=== PATIENT | female | born 1980 | race Caucasian/White ===

== ENCOUNTER → 2016-12-20 | Outpatient (REF) | payer OTHER ==
[~2016-12-20] MED LIST: ASPI1TAB PO; GLIP10TA6 PO; INSULADS SC; LEVO100T5 PO; LISI-538 PO; METF1000 PO; NYST100024 TOP; VENTAER INH
== END ==
LOC: M SFHCWAGY 11:40
PROVIDERS: ATTEND Nurse Practitioner Family
DX: Z12.4 Encounter for screening for malignant neoplasm of cervix (principal)

== ENCOUNTER 2017-01-07 16:15 | Emergency (ER) | payer OTHER ==
[2017-01-07] MEDS ORDERED: HumuLIN R (REGULAR) INSULIN (NovoLIN R) **100U/ML** PER UNIT As Ordered ONE ×2 (16:54→18:02)
[2017-01-07 17:16] LABS: BASO % 0.6 % (0.0-1.0); EOS # 0.1 K/mm3 (0.0-0.50); EOS % 1.7 % (0.0-3.0); LARGE UNSTAINED CELL # 0.2 K/mm3 (0.0-0.4); LARGE UNSTAINED CELL % 2.1 % (0.0-4.0); LYMPH # 1.5 K/mm3 (1.5-4.5); LYMPH % 19.7 % (24.0-44.0); MEAN CORPUSCULAR HEMOGLOBIN 28.3 pg (27.0-33.0); MEAN CORPUSCULAR HGB CONC 32.4 g/dl (32.0-36.5); MEAN CORPUSCULAR VOLUME 87.4 fl (80.0-96.0); MONO # 0.3 K/mm3 (0.0-0.8); MONO % 3.8 % (0.0-5.0); NEUTROPHILS # 5.6 K/mm3 (1.8-7.7); NEUTROPHILS % 72.1 % (36.0-66.0); PLATELET COUNT, AUTOMATED 247 k/mm3 (150-450); RED CELL DISTRIBUTION WIDTH 13.7 % (11.5-14.5); WHITE BLOOD COUNT 7.7 K/mm3 (4.0-10.0)
[2017-01-07 17:17] LABS: VENOUS BASE EXCESS 4.7 (-2.0-2.0); VENOUS O2 SATURATION 44.7 % (60.0-80.0); VENOUS PARTIAL PRESSURE CO2 54.6 mmHg (38.0-50.0); VENOUS PARTIAL PRESSURE O2 25.7 mmHg (30.0-50.0); VENOUS STANDARD HCO3 27.2 MEQ/L; VENOUS TOTAL CO2 33.1 MEQ/L (24.0-28.0)
--- NOTE | 2017-01-07 17:32 | REP ---
Clinical: Cough . Comparison: 09/26/2016 . Technique: PA and lateral. Findings: The mediastinum and cardiac silhouette are normal. The lung [place] are clear and without acute consolidation, effusion, or pneumothorax. The skeletal structures are intact and normal. Impression: 1. No acute cardiopulmonary process. Signed by Murphy Mckeon MD 01/07/2017 05:23 P
[2017-01-07 17:33] LABS: BLOOD UREA NITROGEN 9 MG/DL (7-18); CREATININE FOR GFR 0.94 MG/DL (0.55-1.02); GLUCOSE, FASTING 355 MG/DL (70-105)
[2017-01-07 17:34] LABS: ANION GAP 9 MEQ/L (8-16); CALCIUM LEVEL 8.5 MG/DL (8.5-10.1); CARBON DIOXIDE LEVEL 32 MEQ/L (21-32); CHLORIDE LEVEL 94 MEQ/L (98-107); GLOMERULAR FILTRATION RATE > 60.0 (>60); POTASSIUM SERUM 3.8 MEQ/L (3.5-5.1); SODIUM LEVEL 135 MEQ/L (136-145)
--- NOTE | 2017-01-07 18:57 | EDDOCDS ---
Physician Documentation [facility] Name: Cherise Ghotra Age: 36 yrs Sex: Female : 1980 Arrival Date: 01/07/2017 Time: 16:15 Bed I4 / M4 Private MD: Ekaterina Arrieta NP Disposition: 01/07/17 18:49 Discharged to Home/Self Care. Impression: Acute upper respiratory infection, unspecified, Nausea and vomiting, Diarrhea, unspecified. - Condition is Stable. - Discharge Instructions: Diarrhea, Clear Liquid Diet, Nausea and Vomiting, Upper Respiratory Infection, Pediatric. - Prescriptions for Reglan 10 mg Oral Tablet - take 1 tablet by ORAL route every 6 hours take 30 minutes before meals and at bedtime; 20 tablet. Zithromax Z- You 250 mg Oral Tablet - take 1 tablet by ORAL route as directed for 5 days Day 1- take two tablets once. Day 2, 3, 4 , 5 take one tablet once daily.; 6 tablet. - Medication Reconciliation, Local Pharmacy Hours form. - Follow up: Ekaterina Arrieta; When: 2 - 3 days; Reason: Recheck today's complaints, Continuance of care. - Problem is new. - Symptoms have improved. - Notes: CONTINUE WITH ALBUTEROL AT HOME, INCREASE FLUIDS AND REST, FOLLOW UP WITH YOUR DOCTOR, RETURN TO THE ER IF THE SYMPTOMS WORSEN OR BECOME CONCERNING Historical: - Allergies: Ibuprofenmy doctor told me not to take; - Home Meds: 1. albuterol sulfate 90 mcg/actuation Inhl aepb 1 puff every 4-6 hours 2. aspirin 81 mg Oral tab 1 tab once daily 3. furosemide 40 mg Oral tab 1 tab once daily 4. glipizide 10 mg Oral tab 2 times per day 5. Toujeo SoloStar 300 unit/mL (1.5 mL) subcutaneous inpn 90 unit daily 6. levothyroxine 100 mcg Oral cap 1 cap once daily 7. loratadine 10 mg Oral tab 1 tab once daily 8. metformin 1,000 mg Oral tab 2 times per day - PMHx: Asthma; born with hole in heart; Diabetes - IDDM: controlled; Hypercholesterolemia; Hypertension; Hypothyroidism; - PSHx: Cesearean Section; Hernia repair; Cholecystectomy; right ankle surgery; Hernia Surgery X 9; - Social history: Smoking status: Patient states former smoker of tobacco. No barriers to communication noted, The patient speaks fluent Bahamian, Speaks appropriately for age. - Family history: Pertinent for similar symptoms recently. - : The pt / caregiver states he / she is not on anticoagulants. Home medication list is obtained from the patient. - Exposure Risk Screening:: None identified. 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 2 in. (157.48 cm) (R); Pain 8/10; 18:47 BP 135 / 82; Pulse 75; Resp 18; Temp 98.9(O); Pulse Ox 95% on R/A; Pain 0/10; dem1 16:16 Body Mass Index 58.53 (145.15 kg, 157.48 cm) lr2 MDM: 16:35 Accucheck ordered. ck7 16:42 IV Saline Lock ordered. ck7 16:42 -Blood Culture (Adults Only), peripheral from different site, or from device/port/PICC ck7 etc. if present ordered. 16:42 Obtain sample by nasopharyngeal swab ordered. ck7 16:42 NS 0.9% 1000 ml IV at bolus once ordered. ck7 16:42 Insulin Regular Human 5 units IVP once ordered. ck7 16:42 Accucheck hourly ordered. ck7 16:43 Chest, 2 View (pa\E\lat) Ordered. EDMS 16:43 CBC with Diff Ordered. EDMS 16:43 MED Profile Ordered. EDMS 16:43 -Blood Culture Ordered. EDMS 16:43 -Influenza A&B Rapid Antigen - Nose Ordered. EDMS 16:43 Venous Blood Gas (large pea green tube on ice) Ordered. EDMS 16:46 Fingerstick Blood Sugar Ordered. EDMS 16:53 Financial registration complete. ks16 16:55 -Blood Culture (Adults Only), peripheral from different site, or from device/port/PICC dem1 etc. if present complete. 16:56 BLOOD CULTURES Ordered. EDMS 17:00 [facility] Payment Agreement was scanned into [employer] and attached to record. ks16 17:54 CBC with Diff Reviewed. ck7 17:54 MED Profile Reviewed. ck7 17:54 Venous Blood Gas (large pea green tube on ice) Reviewed. ck7 17:54 Fingerstick Blood Sugar Reviewed. ck7 17:54 -Influenza A&B Rapid Antigen - Nose Reviewed. ck7 17:58 Insulin Regular Human 5 units IVP once ordered. ck7 18:06 Fingerstick Blood Sugar Ordered. EDMS 18:32 Fingerstick Blood Sugar Reviewed. ck7 18:32 Chest, 2 View (pa\E\lat) Reviewed. ck7 18:53 Fingerstick Blood Sugar Reviewed. ck7 Point of Care Testing: Blood Glucose: 16:40 Blood Glucose: 331 mg/dL; mlb1 Ranges: Administered Medications: 17:04 Drug: Insulin Regular Human 5 units [insulin regular human 100 unit/mL injection dls solution (0.05 mL)] {Co-Signature: rs3 (Jeannie Ambrocio RN).} Route: IVP; Site: right antecubital; 17:05 Drug: NS 0.9% 1000 ml [sodium chloride 0.9 % intravenous solution] Route: IV; Rate: dls bolus; Site: right antecubital; 18:06 Drug: Insulin Regular Human 5 units [insulin regular human 100 unit/mL injection dls solution (0.05 mL)] {Co-Signature: [facility] (Stephanie Skinner RN).} Route: IVP; Site: right antecubital; Signatures: Dispatcher [employer] Elisabeth Mares RN RN dls Hellerjeffdontae dem1 Luis A Aquino, RPA-C RPA-Cck7 Meli Valencia RN RN kc3 Samia Mcghee, Reg Reg ks16 Jeannie Ambrocio RN rs3 Stephanie Skinner RN [facility] The chart was reviewed and I authenticate all verbal orders and agree with the evaluation and treatment provided.Attachments: 17:00 [facility] Payment Agreement ks16 MTDD
--- NOTE | 2017-01-07 18:57 | EDDOCDS ---
Nurse's Notes [facility] Name: Cherise Ghotra Age: 36 yrs Sex: Female : 1980 Arrival Date: 01/07/2017 Time: 16:15 Bed I4 / M4 Private MD: Ekaterina Arrieta NP Diagnosis: Acute upper respiratory infection, unspecified;Nausea and vomiting;Diarrhea, unspecified Presentation: 01/07 16:21 Presenting complaint: Patient states: cough, sore throat, diarrhea, nausea x 3 days. kc3 Family members at home with +flu. Adult Sepsis Screening: The patient does not have new or worsening altered mentation. Patient's respiratory rate is less than 22. Systolic blood pressure is greater than 100. Patient has a qSOFA score of 0- Negative Sepsis Screen. Suicide/Homicide risk assessment- the patient denies having any suicidal and/or homicidal ideations and does not present with any other emotional, behavioral or mental health complaints. Status: Patient is not a customer services supervisor or dependent. Transition of care: patient was not received from another setting of care. 16:21 Acuity: ERIC Level 4 kc3 16:21 Method Of Arrival: Walkin/Carried/Asstd kc3 Triage Assessment: 16:25 General: Appears in no apparent distress, comfortable, Behavior is appropriate for age, kc3 cooperative. Pain: Location: body aches. HIV screening NA for this visit Offered previously. Respiratory: Respiratory effort is even, unlabored, Reports cough that is. GI: Reports diarrhea, nausea. 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 albuterol sulfate 90 mcg/actuation Inhl aepb 1 puff every 4-6 hours 2. aspirin 81 mg Oral tab 1 tab once daily 3. furosemide 40 mg Oral tab 1 tab once daily 4. glipizide 10 mg Oral tab 2 times per day 5. Toujeo SoloStar 300 unit/mL (1.5 mL) subcutaneous inpn 90 unit daily 6. levothyroxine 100 mcg Oral cap 1 cap once daily 7. loratadine 10 mg Oral tab 1 tab once daily 8. metformin 1,000 mg Oral tab 2 times per day - PMHx: Asthma; born with hole in heart; Diabetes - IDDM: controlled; Hypercholesterolemia; Hypertension; Hypothyroidism; - PSHx: Cesearean Section; Hernia repair; Cholecystectomy; right ankle surgery; Hernia Surgery X 9; - Social history: Smoking status: Patient states former smoker of tobacco. No barriers to communication noted, The patient speaks fluent Thai, Speaks appropriately for age. - Family history: Pertinent for similar symptoms recently. - : The pt / caregiver states he / she is not on anticoagulants. Home medication list is obtained from the patient. - Exposure Risk Screening:: None identified. Screenin:07 Screening information is obtained from the patient. Fall risk: No risks identified. dls Assistance ADL's: requires no assistance with activities of daily living. Abuse/DV Screen: The patient / caregiver reports he/she is: not in a situation that causes fear, pain or injury. Nutritional screening: No deficits noted. Advance Directives: Currently, there is no health care proxy. There is no active DNR order. There is no living will. There is no Power of Integration Project Manager. Advance directive information has not previously been placed in an [facility] medical record. home support is adequate. Assessment: 17:08 General: Appears in no apparent distress, Behavior is appropriate for age, cooperative. rs3 Pain: Location: SORE THROAT. Neurological: Level of Consciousness is awake, alert, Oriented to person, place, time. Cardiovascular: Capillary refill < 3 seconds Clubbing of nail beds is absent Heart tones S1 S2 present. Respiratory: Airway is patent Respiratory effort is even, unlabored. Derm: Skin is pink, warm & dry. 18:09 General: Pts fingerstick repeated remains elevated PA notified and pt re-medicated with dls Regular insulin 5 units IV bolus infusing well site remains clear.. 18:40 General: Repeat blood sugar is improved PA notified.. dls Vital Signs: 16:16 BP 161 / 94; Pulse 101; Resp 18; Temp 97.2(O); Pulse Ox 94% on R/A; Weight 145.15 kg lr2 (R); Height 5 ft. 2 in. (157.48 cm) (R); Pain 8/10; 18:47 BP 135 / 82; Pulse 75; Resp 18; Temp 98.9(O); Pulse Ox 95% on R/A; Pain 0/10; dem1 16:16 Body Mass Index 58.53 (145.15 kg, 157.48 cm) lr2 Vitals: 16:16 Log In Time: January 07, 2017 at 16:15. lr2 ED Course: 16:16 Patient visited by Radha Stephenson. lr2 16:16 Patient moved to Waiting lr2 16:18 Ekaterina Arrieta is Private Physician. lr2 16:18 Patient moved to Pre RCE lr2 16:22 Triage Initiated kc3 16:30 Luis A Aquino RPA-C is PHCP. ck7 16:30 Finn Ramirez MD is Attending Physician. ck7 16:30 Patient visited by Luis A Aquino RPA-C. ck7 16:30 Patient moved to Triage 2 sew 16:51 Patient moved to I4 / M4 ms18 17:00 [facility] Payment Agreement was scanned into [employer] and attached to record. ks16 17:06 -Influenza A&B Rapid Antigen - Nose Sent. dls 17:07 Venous Blood Gas (large pea green tube on ice) Sent. rs3 17:07 -Blood Culture Sent. rs3 17:08 MED Profile Sent. rs3 17:08 CBC with Diff Sent. rs3 17:09 Patient visited by Jeannie Ambrocio RN. rs3 17:55 Patient visited by Luis A Aquino RPA-C. ck7 17:57 Chest, 2 View (pa\E\lat) Returned. EDMS 18:07 The patient / caregiver is instructed regarding the plan of care and ED course. dls Accompanied by Family Member, Patient has correct armband on for positive identification. Placed in gown. Bed in low position. Call light in reach. 18:07 No procedures done that require assistance. dls 18:31 Patient visited by Luis A Aquino RPA-C. ck7 18:47 Patient visited by Jose Ramon Oates. dem1 18:48 Ekaterina Arrieta is Referral Physician. ck7 18:55 Discontinued IV lock intact, bleeding controlled, pressure dressing applied, No dls redness/swelling at site. Administered Medications: 17:04 Drug: Insulin Regular Human 5 units [insulin regular human 100 unit/mL injection dls solution (0.05 mL)] {Co-Signature: rs3 (Jeannie Ambrocio RN).} Route: IVP; Site: right antecubital; 17:05 Drug: NS 0.9% 1000 ml [sodium chloride 0.9 % intravenous solution] Route: IV; Rate: dls bolus; Site: right antecubital; 18:06 Drug: Insulin Regular Human 5 units [insulin regular human 100 unit/mL injection dls solution (0.05 mL)] {Co-Signature: [facility] (Stephanie Skinner RN).} Route: IVP; Site: right antecubital; Point of Care Testing: Blood Glucose: 16:40 Blood Glucose: 331 mg/dL; mlb1 Ranges: Order Results: Lab Order: CBC with Diff; SPEC'M 01/07/17 17:07 Test: WHITE BLOOD COUNT; Value: 7.7; Range: 4.0-10.0; Units: K/mm3; Status: F Test: RED BLOOD COUNT; Value: 5.07; Range: 4.00-5.40; Units: M/mm3; Status: F Test: HEMOGLOBIN; Value: 14.3; Range: 12.0-16.0; Units: g/dl; Status: F Test: HEMATOCRIT; Value: 44.3; Range: 36.0-47.0; Units: %; Status: F Test: MEAN CORPUSCULAR VOLUME; Value: 87.4; Range: 80.0-96.0; Units: fl; Status: F Test: MEAN CORPUSCULAR HEMOGLOBIN; Value: 28.3; Range: 27.0-33.0; Units: pg; Status: F Test: MEAN CORPUSCULAR HGB CONC; Value: 32.4; Range: 32.0-36.5; Units: g/dl; Status: F Test: RED CELL DISTRIBUTION WIDTH; Value: 13.7; Range: 11.5-14.5; Units: %; Status: F Test: PLATELET COUNT, AUTOMATED; Value: 247; Range: 150-450; Units: k/mm3; Status: F Test: NEUTROPHILS %; Value: 72.1; Range: 36.0-66.0; Abnormal: Above high normal; Units: %; Status: F Test: LYMPH %; Value: 19.7; Range: 24.0-44.0; Abnormal: Below low normal; Units: %; Status: F Test: MONO %; Value: 3.8; Range: 0.0-5.0; Units: %; Status: F Test: EOS %; Value: 1.7; Range: 0.0-3.0; Units: %; Status: F Test: BASO %; Value: 0.6; Range: 0.0-1.0; Units: %; Status: F Test: LARGE UNSTAINED CELL %; Value: 2.1; Range: 0.0-4.0; Units: %; Status: F Test: NEUTROPHILS #; Value: 5.6; Range: 1.8-7.7; Units: K/mm3; Status: F Test: LYMPH #; Value: 1.5; Range: 1.5-4.5; Units: K/mm3; Status: F Test: MONO #; Value: 0.3; Range: 0.0-0.8; Units: K/mm3; Status: F Test: EOS #; Value: 0.1; Range: 0.0-0.50; Units: K/mm3; Status: F Test: BASO #; Value: 0.0; Range: 0.0-0.2; Units: K/mm3; Status: F Test: LARGE UNSTAINED CELL #; Value: 0.2; Range: 0.0-0.4; Units: K/mm3; Status: F Lab Order: [facility] Profile; SPEC'M 01/07/17 17:07 Test: GLUCOSE, FASTING; Value: 355; Range: 70-105; Abnormal: Above high normal; Units: MG/DL; Status: F Test: BLOOD UREA NITROGEN; Value: 9; Range: 7-18; Units: MG/DL; Status: F Test: CREATININE FOR GFR; Value: 0.94; Range: 0.55-1.02; Units: MG/DL; Status: F Test: GLOMERULAR FILTRATION RATE; Value: > 60.0; Range: >60; Status: F Test: SODIUM LEVEL; Value: 135; Range: 136-145; Abnormal: Below low normal; Units: MEQ/L; Status: F Test: POTASSIUM SERUM; Value: 3.8; Range: 3.5-5.1; Units: MEQ/L; Status: F Test: CHLORIDE LEVEL; Value: 94; Range: 98-107; Abnormal: Below low normal; Units: MEQ/L; Status: F Test: CARBON DIOXIDE LEVEL; Value: 32; Range: 21-32; Units: MEQ/L; Status: F Test: ANION GAP; Value: 9; Range: 8-16; Units: MEQ/L; Status: F Test: CALCIUM LEVEL; Value: 8.5; Range: 8.5-10.1; Units: MG/DL; Status: F Test Note: ; Units are mL/min/1.73 m2 Chronic Kidney Disease Staging per NKF: Stage I & II GFR >=60 Normal to Mildly Decreased Stage III GFR 30-59 Moderately Decreased Stage IV GFR 15-29 Severely Decreased Stage V GFR <15 Very Little GFR Left ESRD GFR <15 on [facility]INICAL PSYCHIATRIST Lab Order: -Influenza A&B Rapid Antigen - Nose; SPEC'M 01/07/17 17:07 Test: INFLUENZA A RAPID SCR by ICA; Value: INFLUENZA A RESULTS NEGATIVE; Status: F Test: INFLUENZA A RAPID SCR by ICA; Value: Comments:; Status: F Test: INFLUENZA B RAPID SCR by ICA; Value: INFLUENZA B RESULTS NEGATIVE; Status: F Test Note: ; The Influenza test is a direct rapid immunoassay for the qualitative detection of Influenza viral antigen. Cell culture (Viral Culture) testing should be considered to confirm NEGATIVE results and to assist in detecting other viruses that can provide similar clinical symptoms. Please contact the lab within 24 hours ([phone]) if confirmatory testing is desired. Lab Order: Venous Blood Gas (large pea green tube on ice); SPEC'M 01/07/17 17:07 Test: VENOUS PH; Value: 7.378; Range: 7.330-7.430; Units: UNITS; Status: F Test: VENOUS PARTIAL PRESSURE CO2; Value: 54.6; Range: 38.0-50.0; Abnormal: Above high normal; Units: mmHg; Status: F Test: VENOUS PARTIAL PRESSURE O2; Value: 25.7; Range: 30.0-50.0; Abnormal: Below low normal; Units: mmHg; Status: F Test: VENOUS TOTAL CO2; Value: 33.1; Range: 24.0-28.0; Abnormal: Above high normal; Units: MEQ/L; Status: F Test: VENOUS HCO3; Value: 31.4; Range: 23.0-27.0; Abnormal: Above high normal; Units: MEQ/L; Status: F Test: VENOUS BASE EXCESS; Value: 4.7; Range: -2.0-2.0; Abnormal: Above high normal; Status: F Test: VENOUS STANDARD HCO3; Value: 27.2; Units: MEQ/L; Status: F Test: VENOUS O2 SATURATION; Value: 44.7; Range: 60.0-80.0; Abnormal: Below low normal; Units: %; Status: F Lab Order: Fingerstick Blood Sugar; [facility]' 01/07/17 16:38 Test: BEDSIDE GLUCOSE; Value: 331; Range: 70-105; Abnormal: Above high normal; Units: MG/DL; Status: F Lab Order: Fingerstick Blood Sugar; [facility]' 01/07/17 17:58 Test: BEDSIDE GLUCOSE; Value: 313; Range: 70-105; Abnormal: Above high normal; Units: MG/DL; Status: F Lab Order: Fingerstick Blood Sugar; [facility]' 01/07/17 18:38 Test: BEDSIDE GLUCOSE; Value: 267; Range: 70-105; Abnormal: Above high normal; Units: MG/DL; Status: F Radiology Order: Chest, 2 View (pa\E\lat) Test: Chest, 2 View (pa\E\lat) REASON FOR EXAMINATION: Cough; Clinical: Cough .; ; Comparison: 09/26/2016 .; ; Technique: PA and lateral.; ; Findings:; The mediastinum and cardiac silhouette are normal. The lung [place] are clear and; without acute consolidation, effusion, or pneumothorax. The skeletal structures; are intact and normal.; ; Impression:; 1. No acute cardiopulmonary process.; ; ; Signed by; Murphy Mckeon MD 01/07/2017 05:23 P; Outcome: 18:49 Discharge ordered by Provider. ck7 18:56 Discharge Assessment: Patient awake, alert and oriented x 3. No cognitive and/or dls functional deficits noted. Patient verbalized understanding of disposition instructions. patient administered narcotics - no. The following High Risk Discharge criteria are identified: None. Discharged to home ambulatory. Condition: stable. Discharge instructions given to patient, Instructed on discharge instructions, follow up and referral plans. medication usage, Demonstrated understanding of instructions, medications, Pt was receptive of discharge instructions/ teaching. Prescriptions given X 2. No special radiology studies were completed. 18:56 Property sent home with patient. dls 18:57 Patient left the ED. dls Signatures: Dispatcher [employer] EDMS Elisabeth Healy, RN RN dls Mansoor Santa RN RN mlb1 Cristóbal,BAMBI Dennis RN rs3 Jose Ramon Oates1 Luis A Aquino, RPA-C RPA-Cck7 Dea Ron Mallory, RN RN ms18 Meli Valencia RN RN mason3 Samia Mcghee, Reg Reg ks16 Radha Stephenson [facility] Jeannie Ambrocio RN rs3 Stephanie Skinner RN [facility] MTDD
--- NOTE | 2017-01-09 19:57 | EDDOCDS ---
Physician Documentation [facility] Name: Cherise Ghotra Age: 36 yrs Sex: Female : 1980 Arrival Date: 01/07/2017 Time: 16:15 Bed I4 / M4 Private MD: Ekaterina Arrieta NP Disposition: 01/07/17 18:49 Discharged to Home/Self Care. Impression: Acute upper respiratory infection, unspecified, Nausea and vomiting, Diarrhea, unspecified. - Condition is Stable. - Discharge Instructions: Diarrhea, Clear Liquid Diet, Nausea and Vomiting, Upper Respiratory Infection, Pediatric. - Prescriptions for Reglan 10 mg Oral Tablet - take 1 tablet by ORAL route every 6 hours take 30 minutes before meals and at bedtime; 20 tablet. Zithromax Z- You 250 mg Oral Tablet - take 1 tablet by ORAL route as directed for 5 days Day 1- take two tablets once. Day 2, 3, 4 , 5 take one tablet once daily.; 6 tablet. - Medication Reconciliation, Local Pharmacy Hours form. - Follow up: Ekaterina Arrieta; When: 2 - 3 days; Reason: Recheck today's complaints, Continuance of care. - Problem is new. - Symptoms have improved. - Notes: CONTINUE WITH ALBUTEROL AT HOME, INCREASE FLUIDS AND REST, FOLLOW UP WITH YOUR DOCTOR, RETURN TO THE ER IF THE SYMPTOMS WORSEN OR BECOME CONCERNING Historical: - Allergies: Ibuprofenmy doctor told me not to take; - Home Meds: 1. albuterol sulfate 90 mcg/actuation Inhl aepb 1 puff every 4-6 hours 2. aspirin 81 mg Oral tab 1 tab once daily 3. furosemide 40 mg Oral tab 1 tab once daily 4. glipizide 10 mg Oral tab 2 times per day 5. Toujeo SoloStar 300 unit/mL (1.5 mL) subcutaneous inpn 90 unit daily 6. levothyroxine 100 mcg Oral cap 1 cap once daily 7. loratadine 10 mg Oral tab 1 tab once daily 8. metformin 1,000 mg Oral tab 2 times per day - PMHx: Asthma; born with hole in heart; Diabetes - IDDM: controlled; Hypercholesterolemia; Hypertension; Hypothyroidism; - PSHx: Cesearean Section; Hernia repair; Cholecystectomy; right ankle surgery; Hernia Surgery X 9; - Social history: Smoking status: Patient states former smoker of tobacco. No barriers to communication noted, The patient speaks fluent Upper Sorbian, Speaks appropriately for age. - Family history: Pertinent for similar symptoms recently. - : The pt / caregiver states he / she is not on anticoagulants. Home medication list is obtained from the patient. - Exposure Risk Screening:: None identified. 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 2 in. (157.48 cm) (R); Pain 8/10; 18:47 BP 135 / 82; Pulse 75; Resp 18; Temp 98.9(O); Pulse Ox 95% on R/A; Pain 0/10; dem1 16:16 Body Mass Index 58.53 (145.15 kg, 157.48 cm) lr2 MDM: 16:35 Accucheck ordered. ck7 16:42 IV Saline Lock ordered. ck7 16:42 -Blood Culture (Adults Only), peripheral from different site, or from device/port/PICC ck7 etc. if present ordered. 16:42 Obtain sample by nasopharyngeal swab ordered. ck7 16:42 NS 0.9% 1000 ml IV at bolus once ordered. ck7 16:42 Insulin Regular Human 5 units IVP once ordered. ck7 16:42 Accucheck hourly ordered. ck7 16:43 Chest, 2 View (pa\E\lat) Ordered. EDMS 16:43 CBC with Diff Ordered. EDMS 16:43 MED Profile Ordered. EDMS 16:43 -Blood Culture Ordered. EDMS 16:43 -Influenza A&B Rapid Antigen - Nose Ordered. EDMS 16:43 Venous Blood Gas (large pea green tube on ice) Ordered. EDMS 16:46 Fingerstick Blood Sugar Ordered. EDMS 16:53 Financial registration complete. ks16 16:55 -Blood Culture (Adults Only), peripheral from different site, or from device/port/PICC dem1 etc. if present complete. 16:56 BLOOD CULTURES Ordered. EDMS 17:00 [facility] Payment Agreement was scanned into [employer] and attached to record. ks16 17:54 CBC with Diff Reviewed. ck7 17:54 MED Profile Reviewed. ck7 17:54 Venous Blood Gas (large pea green tube on ice) Reviewed. ck7 17:54 Fingerstick Blood Sugar Reviewed. ck7 17:54 -Influenza A&B Rapid Antigen - Nose Reviewed. ck7 17:58 Insulin Regular Human 5 units IVP once ordered. ck7 18:06 Fingerstick Blood Sugar Ordered. EDMS 18:32 Fingerstick Blood Sugar Reviewed. ck7 18:32 Chest, 2 View (pa\E\lat) Reviewed. ck7 18:53 Fingerstick Blood Sugar Reviewed. 7 01/08 09:00 T-Sheet-- Draft Copy was scanned into [employer] and attached to record. [facility] Point of Care Testing: Blood Glucose: 01/07 16:40 Blood Glucose: 331 mg/dL; mlb1 Ranges: Administered Medications: 17:04 Drug: Insulin Regular Human 5 units [insulin regular human 100 unit/mL injection dls solution (0.05 mL)] {Co-Signature: rs3 (Jeannie Ambrocio RN).} Route: IVP; Site: right antecubital; 17:05 Drug: NS 0.9% 1000 ml [sodium chloride 0.9 % intravenous solution] Route: IV; Rate: dls bolus; Site: right antecubital; 18:06 Drug: Insulin Regular Human 5 units [insulin regular human 100 unit/mL injection dls solution (0.05 mL)] {Co-Signature: [facility] (Stephanie Skinner RN).} Route: IVP; Site: right antecubital; Signatures: Dispatcher [employer] EDWY Elisabeth Healy RN RN dls Jose Ramon Oates dem1 Luis A Aquino, RPA-C RPA-Cck7 Meli Valencia RN RN kc3 Samia Mcghee, Reg Reg me16 Dea Peralta [facility] Jeannie Ambrocio RN rs3 Stephanie Skinner RN [facility] The chart was reviewed and I authenticate all verbal orders and agree with the evaluation and treatment provided.Attachments: 17:00 [facility] Payment Agreement [email or web address] 01/08 09:00 T-Sheet-- Draft Copy [facility] Chart Complete MTDD
--- NOTE | 2017-01-09 19:57 | EDDOCDS ---
Nurse's Notes [facility] Name: Cherise Ghotra Age: 36 yrs Sex: Female : 1980 Arrival Date: 01/07/2017 Time: 16:15 Bed I4 / M4 Private MD: Ekaterina Arrieta NP Diagnosis: Acute upper respiratory infection, unspecified;Nausea and vomiting;Diarrhea, unspecified Presentation: 01/07 16:21 Presenting complaint: Patient states: cough, sore throat, diarrhea, nausea x 3 days. kc3 Family members at home with +flu. Adult Sepsis Screening: The patient does not have new or worsening altered mentation. Patient's respiratory rate is less than 22. Systolic blood pressure is greater than 100. Patient has a qSOFA score of 0- Negative Sepsis Screen. Suicide/Homicide risk assessment- the patient denies having any suicidal and/or homicidal ideations and does not present with any other emotional, behavioral or mental health complaints. Status: Patient is not a field servicer or dependent. Transition of care: patient was not received from another setting of care. 16:21 Acuity: ERIC Level 4 kc3 16:21 Method Of Arrival: Walkin/Carried/Asstd kc3 Triage Assessment: 16:25 General: Appears in no apparent distress, comfortable, Behavior is appropriate for age, kc3 cooperative. Pain: Location: body aches. HIV screening NA for this visit Offered previously. Respiratory: Respiratory effort is even, unlabored, Reports cough that is. GI: Reports diarrhea, nausea. LENS BLOCKER: 16:26 LMP 12/08/2016 kc3 Historical: - Allergies: Ibuprofenmy doctor told me not to take; - Home Meds: 1. albuterol sulfate 90 mcg/actuation Inhl aepb 1 puff every 4-6 hours 2. aspirin 81 mg Oral tab 1 tab once daily 3. furosemide 40 mg Oral tab 1 tab once daily 4. glipizide 10 mg Oral tab 2 times per day 5. Toujeo SoloStar 300 unit/mL (1.5 mL) subcutaneous inpn 90 unit daily 6. levothyroxine 100 mcg Oral cap 1 cap once daily 7. loratadine 10 mg Oral tab 1 tab once daily 8. metformin 1,000 mg Oral tab 2 times per day - PMHx: Asthma; born with hole in heart; Diabetes - IDDM: controlled; Hypercholesterolemia; Hypertension; Hypothyroidism; - PSHx: Cesearean Section; Hernia repair; Cholecystectomy; right ankle surgery; Hernia Surgery X 9; - Social history: Smoking status: Patient states former smoker of tobacco. No barriers to communication noted, The patient speaks fluent Albanian, Speaks appropriately for age. - Family history: Pertinent for similar symptoms recently. - : The pt / caregiver states he / she is not on anticoagulants. Home medication list is obtained from the patient. - Exposure Risk Screening:: None identified. Screenin:07 Screening information is obtained from the patient. Fall risk: No risks identified. dls Assistance ADL's: requires no assistance with activities of daily living. Abuse/DV Screen: The patient / caregiver reports he/she is: not in a situation that causes fear, pain or injury. Nutritional screening: No deficits noted. Advance Directives: Currently, there is no health care proxy. There is no active DNR order. There is no living will. There is no Power of Revival Clerk. Advance directive information has not previously been placed in an [facility] medical record. home support is adequate. Assessment: 17:08 General: Appears in no apparent distress, Behavior is appropriate for age, cooperative. rs3 Pain: Location: SORE THROAT. Neurological: Level of Consciousness is awake, alert, Oriented to person, place, time. Cardiovascular: Capillary refill < 3 seconds Clubbing of nail beds is absent Heart tones S1 S2 present. Respiratory: Airway is patent Respiratory effort is even, unlabored. Derm: Skin is pink, warm & dry. 18:09 General: Pts fingerstick repeated remains elevated PA notified and pt re-medicated with dls Regular insulin 5 units IV bolus infusing well site remains clear.. 18:40 General: Repeat blood sugar is improved PA notified.. dls Vital Signs: 16:16 BP 161 / 94; Pulse 101; Resp 18; Temp 97.2(O); Pulse Ox 94% on R/A; Weight 145.15 kg lr2 (R); Height 5 ft. 2 in. (157.48 cm) (R); Pain 8/10; 18:47 BP 135 / 82; Pulse 75; Resp 18; Temp 98.9(O); Pulse Ox 95% on R/A; Pain 0/10; dem1 16:16 Body Mass Index 58.53 (145.15 kg, 157.48 cm) lr2 Vitals: 16:16 Log In Time: January 07, 2017 at 16:15. lr2 ED Course: 16:16 Patient visited by Radha Stephenson. lr2 16:16 Patient moved to Waiting lr2 16:18 Ekaterina Arrieta is Private Physician. lr2 16:18 Patient moved to Pre RCE lr2 16:22 Triage Initiated kc3 16:30 Luis A Aquino RPA-C is PHCP. ck7 16:30 Finn Ramirez MD is Attending Physician. ck7 16:30 Patient visited by Luis A Aquino RPA-C. ck7 16:30 Patient moved to Triage 2 sew 16:51 Patient moved to I4 / M4 ms18 17:00 [facility] Payment Agreement was scanned into [employer] and attached to record. ks16 17:06 -Influenza A&B Rapid Antigen - Nose Sent. dls 17:07 Venous Blood Gas (large pea green tube on ice) Sent. rs3 17:07 -Blood Culture Sent. rs3 17:08 MED Profile Sent. rs3 17:08 CBC with Diff Sent. rs3 17:09 Patient visited by Jeannie Ambrocio RN. rs3 17:55 Patient visited by Luis A Aquino RPA-C. ck7 17:57 Chest, 2 View (pa\E\lat) Returned. EDMS 18:07 The patient / caregiver is instructed regarding the plan of care and ED course. dls Accompanied by Family Member, Patient has correct armband on for positive identification. Placed in gown. Bed in low position. Call light in reach. 18:07 No procedures done that require assistance. dls 18:31 Patient visited by Luis A Aquino RPA-C. ck7 18:47 Patient visited by Jose Ramon Oates. dem1 18:48 Ekaterina Arrieta is Referral Physician. ck7 18:55 Discontinued IV lock intact, bleeding controlled, pressure dressing applied, No dls redness/swelling at site. 01/08 09:00 T-Sheet-- Draft Copy was scanned into [employer] and attached to record. seh Administered Medications: 01/07 17:04 Drug: Insulin Regular Human 5 units [insulin regular human 100 unit/mL injection dls solution (0.05 mL)] {Co-Signature: rs3 (Jeannie Ambrocio RN).} Route: IVP; Site: right antecubital; 17:05 Drug: NS 0.9% 1000 ml [sodium chloride 0.9 % intravenous solution] Route: IV; Rate: dls bolus; Site: right antecubital; 18:06 Drug: Insulin Regular Human 5 units [insulin regular human 100 unit/mL injection dls solution (0.05 mL)] {Co-Signature: cj (Stephanie Skinner RN).} Route: IVP; Site: right antecubital; Point of Care Testing: Blood Glucose: 16:40 Blood Glucose: 331 mg/dL; mlb1 Ranges: Order Results: Lab Order: CBC with Diff; SPEC'M 01/07/17 17:07 Test: WHITE BLOOD COUNT; Value: 7.7; Range: 4.0-10.0; Units: K/mm3; Status: F Test: RED BLOOD COUNT; Value: 5.07; Range: 4.00-5.40; Units: M/mm3; Status: F Test: HEMOGLOBIN; Value: 14.3; Range: 12.0-16.0; Units: g/dl; Status: F Test: HEMATOCRIT; Value: 44.3; Range: 36.0-47.0; Units: %; Status: F Test: MEAN CORPUSCULAR VOLUME; Value: 87.4; Range: 80.0-96.0; Units: fl; Status: F Test: MEAN CORPUSCULAR HEMOGLOBIN; Value: 28.3; Range: 27.0-33.0; Units: pg; Status: F Test: MEAN CORPUSCULAR HGB CONC; Value: 32.4; Range: 32.0-36.5; Units: g/dl; Status: F Test: RED CELL DISTRIBUTION WIDTH; Value: 13.7; Range: 11.5-14.5; Units: %; Status: F Test: PLATELET COUNT, AUTOMATED; Value: 247; Range: 150-450; Units: k/mm3; Status: F Test: NEUTROPHILS %; Value: 72.1; Range: 36.0-66.0; Abnormal: Above high normal; Units: %; Status: F Test: LYMPH %; Value: 19.7; Range: 24.0-44.0; Abnormal: Below low normal; Units: %; Status: F Test: MONO %; Value: 3.8; Range: 0.0-5.0; Units: %; Status: F Test: EOS %; Value: 1.7; Range: 0.0-3.0; Units: %; Status: F Test: BASO %; Value: 0.6; Range: 0.0-1.0; Units: %; Status: F Test: LARGE UNSTAINED CELL %; Value: 2.1; Range: 0.0-4.0; Units: %; Status: F Test: NEUTROPHILS #; Value: 5.6; Range: 1.8-7.7; Units: K/mm3; Status: F Test: LYMPH #; Value: 1.5; Range: 1.5-4.5; Units: K/mm3; Status: F Test: MONO #; Value: 0.3; Range: 0.0-0.8; Units: K/mm3; Status: F Test: EOS #; Value: 0.1; Range: 0.0-0.50; Units: K/mm3; Status: F Test: BASO #; Value: 0.0; Range: 0.0-0.2; Units: K/mm3; Status: F Test: LARGE UNSTAINED CELL #; Value: 0.2; Range: 0.0-0.4; Units: K/mm3; Status: F Lab Order: MED Profile; SPEC'M 01/07/17 17:07 Test: GLUCOSE, FASTING; Value: 355; Range: 70-105; Abnormal: Above high normal; Units: MG/DL; Status: F Test: BLOOD UREA NITROGEN; Value: 9; Range: 7-18; Units: MG/DL; Status: F Test: CREATININE FOR GFR; Value: 0.94; Range: 0.55-1.02; Units: MG/DL; Status: F Test: GLOMERULAR FILTRATION RATE; Value: > 60.0; Range: >60; Status: F Test: SODIUM LEVEL; Value: 135; Range: 136-145; Abnormal: Below low normal; Units: MEQ/L; Status: F Test: POTASSIUM SERUM; Value: 3.8; Range: 3.5-5.1; Units: MEQ/L; Status: F Test: CHLORIDE LEVEL; Value: 94; Range: 98-107; Abnormal: Below low normal; Units: MEQ/L; Status: F Test: CARBON DIOXIDE LEVEL; Value: 32; Range: 21-32; Units: MEQ/L; Status: F Test: ANION GAP; Value: 9; Range: 8-16; Units: MEQ/L; Status: F Test: CALCIUM LEVEL; Value: 8.5; Range: 8.5-10.1; Units: MG/DL; Status: F Test Note: ; Units are mL/min/1.73 m2 Chronic Kidney Disease Staging per NKF: Stage I & II GFR >=60 Normal to Mildly Decreased Stage III GFR 30-59 Moderately Decreased Stage IV GFR 15-29 Severely Decreased Stage V GFR <15 Very Little GFR Left ESRD GFR <15 on CHIEF ANALYTICS OFFICER Lab Order: -Blood Culture; SPEC'M 01/07/17 17:07 Test: BLOOD CULTURE; Value: No growth after 24 hours . All specimens observed; Status: F Test: BLOOD CULTURE; Value: for 5 days. Results final at that time.; Status: F Test: BLOOD CULTURE; Value: No Growth after 48 hours. All Specimens observed; Status: F Test: BLOOD CULTURE; Value: for 7 days. Results final at that time.; Status: F Lab Order: -Influenza A&B Rapid Antigen - Nose; SPEC'M 01/07/17 17:07 Test: INFLUENZA A RAPID SCR by ICA; Value: INFLUENZA A RESULTS NEGATIVE; Status: F Test: INFLUENZA A RAPID SCR by ICA; Value: Comments:; Status: F Test: INFLUENZA B RAPID SCR by ICA; Value: INFLUENZA B RESULTS NEGATIVE; Status: F Test Note: ; The Influenza test is a direct rapid immunoassay for the qualitative detection of Influenza viral antigen. Cell culture (Viral Culture) testing should be considered to confirm NEGATIVE results and to assist in detecting other viruses that can provide similar clinical symptoms. Please contact the lab within 24 hours ([phone]) if confirmatory testing is desired. Lab Order: Venous Blood Gas (large pea green tube on ice); SPEC'M 01/07/17 17:07 Test: VENOUS PH; Value: 7.378; Range: 7.330-7.430; Units: UNITS; Status: F Test: VENOUS PARTIAL PRESSURE CO2; Value: 54.6; Range: 38.0-50.0; Abnormal: Above high normal; Units: mmHg; Status: F Test: VENOUS PARTIAL PRESSURE O2; Value: 25.7; Range: 30.0-50.0; Abnormal: Below low normal; Units: mmHg; Status: F Test: VENOUS TOTAL CO2; Value: 33.1; Range: 24.0-28.0; Abnormal: Above high normal; Units: MEQ/L; Status: F Test: VENOUS HCO3; Value: 31.4; Range: 23.0-27.0; Abnormal: Above high normal; Units: MEQ/L; Status: F Test: VENOUS BASE EXCESS; Value: 4.7; Range: -2.0-2.0; Abnormal: Above high normal; Status: F Test: VENOUS STANDARD HCO3; Value: 27.2; Units: MEQ/L; Status: F Test: VENOUS O2 SATURATION; Value: 44.7; Range: 60.0-80.0; Abnormal: Below low normal; Units: %; Status: F Lab Order: Fingerstick Blood Sugar; [facility] 01/07/17 16:38 Test: BEDSIDE GLUCOSE; Value: 331; Range: 70-105; Abnormal: Above high normal; Units: MG/DL; Status: F Lab Order: BLOOD CULTURES; [facility] 01/07/17 17:33 Test: BLOOD CULTURE; Value: No growth after 24 hours . All specimens observed; Status: F Test: BLOOD CULTURE; Value: for 5 days. Results final at that time.; Status: F Test: BLOOD CULTURE; Value: No Growth after 48 hours. All Specimens observed; Status: F Test: BLOOD CULTURE; Value: for 7 days. Results final at that time.; Status: F Lab Order: Fingerstick Blood Sugar; [facility] 01/07/17 17:58 Test: BEDSIDE GLUCOSE; Value: 313; Range: 70-105; Abnormal: Above high normal; Units: MG/DL; Status: F Lab Order: Fingerstick Blood Sugar; [facility] 01/07/17 18:38 Test: BEDSIDE GLUCOSE; Value: 267; Range: 70-105; Abnormal: Above high normal; Units: MG/DL; Status: F Radiology Order: Chest, 2 View (pa\E\lat) Test: Chest, 2 View (pa\E\lat) REASON FOR EXAMINATION: Cough; Clinical: Cough .; ; Comparison: 09/26/2016 .; ; Technique: PA and lateral.; ; Findings:; The mediastinum and cardiac silhouette are normal. The lung [place] are clear and; without acute consolidation, effusion, or pneumothorax. The skeletal structures; are intact and normal.; ; Impression:; 1. No acute cardiopulmonary process.; ; ; Signed by; Murphy Mckeon MD 01/07/2017 05:23 P; Outcome: 18:49 Discharge ordered by Provider. ck7 18:56 Discharge Assessment: Patient awake, alert and oriented x 3. No cognitive and/or dls functional deficits noted. Patient verbalized understanding of disposition instructions. patient administered narcotics - no. The following High Risk Discharge criteria are identified: None. Discharged to home ambulatory. Condition: stable. Discharge instructions given to patient, Instructed on discharge instructions, follow up and referral plans. medication usage, Demonstrated understanding of instructions, medications, Pt was receptive of discharge instructions/ teaching. Prescriptions given X 2. No special radiology studies were completed. 18:56 Property sent home with patient. dls 18:57 Patient left the ED. dls Signatures: Dispatcher [employer] EDMS Elisabeth Healy, RN RN dls Mansoor Santa RN RN mlb1 Jeannie Ambrocio,RN RN rs3 Jose Ramon Oates Christopher, REDDY-C RPA-Cck7 Dea Ron Mallory,RN RN ms18 Meli Valencia,RN RN kc3 Samia Mcghee, Reg Reg ks16 Fabian, Radha Hopkins lr2 Jeannie Ambrocio RN rs3 Stephanie Skinner RN [facility] Chart Complete MTDD
--- NOTE | 2017-01-09 19:57 | EDDOCDS ---
Physician Documentation [facility] Name: Cherise Ghotra Age: 36 yrs Sex: Female : 1980 Arrival Date: 01/07/2017 Time: 16:15 Bed I4 / M4 Private MD: Ekaterina Arrieta NP Disposition: 01/07/17 18:49 Discharged to Home/Self Care. Impression: Acute upper respiratory infection, unspecified, Nausea and vomiting, Diarrhea, unspecified. - Condition is Stable. - Discharge Instructions: Diarrhea, Clear Liquid Diet, Nausea and Vomiting, Upper Respiratory Infection, Pediatric. - Prescriptions for Reglan 10 mg Oral Tablet - take 1 tablet by ORAL route every 6 hours take 30 minutes before meals and at bedtime; 20 tablet. Zithromax Z- You 250 mg Oral Tablet - take 1 tablet by ORAL route as directed for 5 days Day 1- take two tablets once. Day 2, 3, 4 , 5 take one tablet once daily.; 6 tablet. - Medication Reconciliation, Local Pharmacy Hours form. - Follow up: Ekaterina Arrieta; When: 2 - 3 days; Reason: Recheck today's complaints, Continuance of care. - Problem is new. - Symptoms have improved. - Notes: CONTINUE WITH ALBUTEROL AT HOME, INCREASE FLUIDS AND REST, FOLLOW UP WITH YOUR DOCTOR, RETURN TO THE ER IF THE SYMPTOMS WORSEN OR BECOME CONCERNING Historical: - Allergies: Ibuprofenmy doctor told me not to take; - Home Meds: 1. albuterol sulfate 90 mcg/actuation Inhl aepb 1 puff every 4-6 hours 2. aspirin 81 mg Oral tab 1 tab once daily 3. furosemide 40 mg Oral tab 1 tab once daily 4. glipizide 10 mg Oral tab 2 times per day 5. Toujeo SoloStar 300 unit/mL (1.5 mL) subcutaneous inpn 90 unit daily 6. levothyroxine 100 mcg Oral cap 1 cap once daily 7. loratadine 10 mg Oral tab 1 tab once daily 8. metformin 1,000 mg Oral tab 2 times per day - PMHx: Asthma; born with hole in heart; Diabetes - IDDM: controlled; Hypercholesterolemia; Hypertension; Hypothyroidism; - PSHx: Cesearean Section; Hernia repair; Cholecystectomy; right ankle surgery; Hernia Surgery X 9; - Social history: Smoking status: Patient states former smoker of tobacco. No barriers to communication noted, The patient speaks fluent Polish, Speaks appropriately for age. - Family history: Pertinent for similar symptoms recently. - : The pt / caregiver states he / she is not on anticoagulants. Home medication list is obtained from the patient. - Exposure Risk Screening:: None identified. HEALTH THERAPIST: 01/07 16:26 LMP 12/08/2016 kc3 Vital Signs: 16:16 BP 161 / 94; Pulse 101; Resp 18; Temp 97.2(O); Pulse Ox 94% on R/A; Weight 145.15 kg / lr2 320 lbs (R); Height 5 ft. 2 in. (157.48 cm) (R); Pain 8/10; 18:47 BP 135 / 82; Pulse 75; Resp 18; Temp 98.9(O); Pulse Ox 95% on R/A; Pain 0/10; dem1 16:16 Body Mass Index 58.53 (145.15 kg, 157.48 cm) lr2 MDM: 16:35 Accucheck ordered. ck7 16:42 IV Saline Lock ordered. ck7 16:42 -Blood Culture (Adults Only), peripheral from different site, or from device/port/PICC ck7 etc. if present ordered. 16:42 Obtain sample by nasopharyngeal swab ordered. ck7 16:42 NS 0.9% 1000 ml IV at bolus once ordered. ck7 16:42 Insulin Regular Human 5 units IVP once ordered. ck7 16:42 Accucheck hourly ordered. ck7 16:43 Chest, 2 View (pa\E\lat) Ordered. EDMS 16:43 CBC with Diff Ordered. EDMS 16:43 MED Profile Ordered. EDMS 16:43 -Blood Culture Ordered. EDMS 16:43 -Influenza A&B Rapid Antigen - Nose Ordered. EDMS 16:43 Venous Blood Gas (large pea green tube on ice) Ordered. EDMS 16:46 Fingerstick Blood Sugar Ordered. EDMS 16:53 Financial registration complete. [email or web address] 16:55 -Blood Culture (Adults Only), peripheral from different site, or from device/port/PICC dem1 etc. if present complete. 16:56 BLOOD CULTURES Ordered. EDMS 17:00 [facility] Payment Agreement was scanned into Card[employer] and attached to record. [email or web address] 17:54 CBC with Diff Reviewed. ck7 17:54 MED Profile Reviewed. ck7 17:54 Venous Blood Gas (large pea green tube on ice) Reviewed. ck7 17:54 Fingerstick Blood Sugar Reviewed. ck7 17:54 -Influenza A&B Rapid Antigen - Nose Reviewed. ck7 17:58 Insulin Regular Human 5 units IVP once ordered. ck7 18:06 Fingerstick Blood Sugar Ordered. EDMS 18:32 Fingerstick Blood Sugar Reviewed. ck7 18:32 Chest, 2 View (pa\E\lat) Reviewed. ck7 18:53 Fingerstick Blood Sugar Reviewed. 7 01/08 09:00 T-Sheet-- Draft Copy was scanned into CardLab and attached to record. [facility] Point of Care Testing: Blood Glucose: 01/07 16:40 Blood Glucose: 331 mg/dL; mlb1 Ranges: Administered Medications: 17:04 Drug: Insulin Regular Human 5 units [insulin regular human 100 unit/mL injection dls solution (0.05 mL)] {Co-Signature: rs3 (Jeannie Ambrocio RN).} Route: IVP; Site: right antecubital; 17:05 Drug: NS 0.9% 1000 ml [sodium chloride 0.9 % intravenous solution] Route: IV; Rate: dls bolus; Site: right antecubital; 18:06 Drug: Insulin Regular Human 5 units [insulin regular human 100 unit/mL injection dls solution (0.05 mL)] {Co-Signature: [facility] (Stephanie Skinner RN).} Route: IVP; Site: right antecubital; Signatures: Dispatcher [employer] EDTX Elisabeth Healy RN RN dls Jose Ramon Oates dem1 Luis A Aquino, RPA-C [id number] Meli Valencia RN RN kc3 Samia Mcghee, Reg Reg pa16 Dea P[address] [facility] Jeannie Ambrocio RN rs3 Stephanie Skinner RN [facility] The chart was reviewed and I authenticate all verbal orders and agree with the evaluation and treatment provided.Attachments: 17:00 [facility] Payment Agreement [email or web address] 01/08 09:00 T-Sheet-- Draft Copy [facility] Chart Complete MTDD
== END 2017-01-07 18:57 | disposition home or self-care (01) ==
LOC: M ED 16:15
DX: J06.9 Acute upper respiratory infection, unspecified (principal); R11.2 Nausea with vomiting, unspecified; J45.909 Unspecified asthma, uncomplicated; E11.9 Type 2 diabetes mellitus without complications; E78.00 Pure hypercholesterolemia, unspecified; I10 Essential (primary) hypertension; Z87.891 Personal history of nicotine dependence; Z79.82 Long term (current) use of aspirin; Z79.899 Other long term (current) drug therapy; Z79.84 Long term (current) use of oral hypoglycemic drugs; Z88.6 Allergy status to analgesic agent

== ENCOUNTER → 2017-01-10 | Outpatient (REF) | payer OTHER ==
[2017-01-10 12:16] LABS: ALBUMIN/GLOBULIN RATIO 0.79 (1.00-1.93); ALKALINE PHOSPHATASE 117 U/L (45-117); ALT/SGPT 49 U/L (12-78); ANION GAP 10 MEQ/L (8-16); AST/SGOT 38 U/L (15-37); BILIRUBIN,TOTAL 0.3 MG/DL (0.2-1.0); BLOOD UREA NITROGEN 5 MG/DL (7-18); CALCIUM LEVEL 7.8 MG/DL (8.5-10.1); CARBON DIOXIDE LEVEL 30 MEQ/L (21-32); CHLORIDE LEVEL 98 MEQ/L (98-107); FREE T4 0.96 NG/DL (0.76-1.46); GLOMERULAR FILTRATION RATE > 60.0 (>60); GLUCOSE, FASTING 268 MG/DL (70-105); POTASSIUM SERUM 3.6 MEQ/L (3.5-5.1); SODIUM LEVEL 138 MEQ/L (136-145); TOTAL PROTEIN 6.8 GM/DL (6.4-8.2)
== END ==
LOC: M SFHCPLAZ 08:02
PROVIDERS: ATTEND Nurse Practitioner Family
DX: E11.65 Type 2 diabetes mellitus with hyperglycemia (principal); E03.9 Hypothyroidism, unspecified; E55.9 Vitamin D deficiency, unspecified

== ENCOUNTER → 2017-01-20 | Outpatient (REF) | payer OTHER | LOC: M SFHCWAGY 14:55 | PROVIDERS: ATTEND Family Medicine | DX: R87.612 Low grade squamous intraepithelial lesion on cytologic smear of cervix (LGSIL) (principal) ==

== ENCOUNTER 2017-05-03 11:04 | Emergency (ER) | payer OTHER ==
[~2017-05-03] VITALS: Ht 157.5 cm; Wt 145.9 kg
[~2017-05-03 11:04] MED LIST changes: -METF1000 PO; +METF10004 PO; -NYST100024 TOP; +NYST1POW9 TOP
[2017-05-03] MEDS ORDERED: INSUH10VL SC (11:15)
[2017-05-03] MEDS ORDERED: ONDANSETRON 4 MG ORAL DISINTEGRATING TAB (S0181) PO ONE (13:00)
[2017-05-03] MEDS ORDERED: ZOFR4TAB3 PO (14:05)
[2017-05-03 14:12] VITALS: BP 168/92
== END 2017-05-03 14:26 | disposition home or self-care (01) ==
LOC: M ED 13:10
DX: E86.0 Dehydration (principal); R11.2 Nausea with vomiting, unspecified; R19.7 Diarrhea, unspecified; E11.40 Type 2 diabetes mellitus with diabetic neuropathy, unspecified; I10 Essential (primary) hypertension; G43.909 Migraine, unspecified, not intractable, without status migrainosus; E78.00 Pure hypercholesterolemia, unspecified; J45.909 Unspecified asthma, uncomplicated; G47.33 Obstructive sleep apnea (adult) (pediatric); E07.9 Disorder of thyroid, unspecified; Z90.49 Acquired absence of other specified parts of digestive tract; Z87.891 Personal history of nicotine dependence; Z79.4 Long term (current) use of insulin; Z79.82 Long term (current) use of aspirin; Z79.899 Other long term (current) drug therapy

== ENCOUNTER 2017-11-11 20:42 | Emergency (ER) | payer OTHER ==
[2017-11-11 21:44] LABS: VENOUS BASE EXCESS -1.7 (-2.0-2.0); VENOUS HCO3 22.6 MEQ/L (23.0-27.0); VENOUS PARTIAL PRESSURE O2 85.9 mmHg (30.0-50.0); VENOUS PH 7.403 UNITS (7.330-7.430); VENOUS TOTAL CO2 23.7 MEQ/L (24.0-28.0)
[2017-11-11] MEDS: NS 1,000 ML IV ×2 (21:46→23:00)
[2017-11-11 21:47] LABS: BASO # 0.1 10^3/uL (0.0-0.2); BASO % 0.5 % (0.0-1.0); EOS # 0.1 10^3/uL (0.0-0.50); EOS % 0.8 % (0.0-3.0); HEMATOCRIT 40.1 % (36.0-47.0); HEMOGLOBIN 13.2 g/dl (12.0-16.0); IMMATURE GRANULOCYTE % 0.3 % (0-0); LYMPH # 2.1 10^3/uL (1.5-4.5); LYMPH % 21.6 % (24.0-44.0); MEAN CORPUSCULAR HEMOGLOBIN 28.3 pg (27.0-33.0); MEAN CORPUSCULAR HGB CONC 32.9 g/dl (32.0-36.5); MEAN CORPUSCULAR VOLUME 85.9 fl (80.0-96.0); MONO # 0.4 10^3/uL (0.0-0.8); MONO % 4.1 % (0.0-5.0); NEUTROPHILS % 72.7 % (36.0-66.0); PLATELET COUNT, AUTOMATED 259 10^3/uL (150-450); RED BLOOD COUNT 4.67 10^6/uL (4.00-5.40); RED CELL DISTRIBUTION WIDTH 13.6 % (11.5-14.5); WHITE BLOOD COUNT 9.6 10^3/uL (4.0-10.0)
[2017-11-11 22:02] LABS: KETONE, URINE AUTO RFX TRACE mg/dL (NEGATIVE); NITRITE, URINE AUTO RFX NEGATIVE (NEGATIVE); RBC, URINE AUTO RFX 3 /HPF (0-3); SPECIFIC GRAVITY UR AUTO RFX 1.022 (1.002-1.035); SQUAM EPITHELIAL CELL UR AURFX 1 /HPF (0-6); WBC, URINE AUTO RFX 2 /HPF (0-3)
[2017-11-11 22:06] LABS: LEUKOCYTE ESTERASE UR AUTO RFX TRACE (NEGATIVE)
[2017-11-11 22:10] LABS: CONTROL LINE HCG INT CTR LINE PRESENT; HCG, SERUM QUALITATIVE NEGATIVE (NEGATIVE)
[2017-11-11] MEDS: HumaLOG INSULIN (NovoLOG) PER UNIT SC (22:13)
[2017-11-11 22:20] LABS: ALBUMIN 2.9 GM/DL (3.2-5.2); ALKALINE PHOSPHATASE 139 U/L (45-117); ALT/SGPT 26 U/L (12-78); ANION GAP 11 MEQ/L (8-16); AST/SGOT 18 U/L (7-37); BILIRUBIN,DIRECT 0.1 MG/DL (0.0-0.2); BILIRUBIN,TOTAL 0.5 MG/DL (0.2-1.0); BLOOD UREA NITROGEN 13 MG/DL (7-18); CALCIUM LEVEL 8.1 MG/DL (8.5-10.1); CARBON DIOXIDE LEVEL 25 MEQ/L (21-32); CHLORIDE LEVEL 92 MEQ/L (98-107); CREATININE FOR GFR 1.12 MG/DL (0.55-1.02); GLOMERULAR FILTRATION RATE 57.7 (>60); SODIUM LEVEL 128 MEQ/L (136-145); TOTAL PROTEIN 7.7 GM/DL (6.4-8.2)
[2017-11-11 22:22] LABS: ESTIMATED AVERAGE GLUCOSE 378 MG/DL (60-110); HEMOGLOBIN A1c 14.8 %
[2017-11-11 22:44] LABS: GLUCOSE, FASTING 645 MG/DL (70-105)
[2017-11-11 22:59] LABS: ACETONE/KETONE 3.96 MG/DL (<2.81)
[2017-11-11 23:18] LABS: BEDSIDE GLUCOSE 577 MG/DL (70-105)
[2017-11-11] MEDS ORDERED: HumaLOG INSULIN (NovoLOG) PER UNIT SC (23:22)
[2017-11-12] MEDS ORDERED: HumuLIN R (REGULAR) INSULIN (NovoLIN R) **100U/ML** PER UNIT IV (00:09)
[2017-11-12] MEDS: HumaLOG INSULIN (NovoLOG) PER UNIT SC ×2 (00:11→00:16)
[2017-11-12 01:20] LABS: BEDSIDE GLUCOSE 400 MG/DL (70-105)
[2017-11-12 02:21] LABS: BEDSIDE GLUCOSE 327 MG/DL (70-105)
[2017-11-14 11:38] LABS: BEDSIDE GLUCOSE > 600 MG/DL (70-105)
== END 2017-11-12 02:45 | disposition home or self-care (01) ==
LOC: M ED 11-12 02:45
DX: E10.65 Type 1 diabetes mellitus with hyperglycemia (principal); E78.00 Pure hypercholesterolemia, unspecified; G43.909 Migraine, unspecified, not intractable, without status migrainosus; Z79.899 Other long term (current) drug therapy; Z79.82 Long term (current) use of aspirin; Z79.4 Long term (current) use of insulin; Z79.890 Hormone replacement therapy
CPT/HCPCS: 71020

== ENCOUNTER → 2018-01-03 | Outpatient (REF) | payer OTHER ==
[2018-01-09 08:07] LABS: HPV HYBRID CAPTURE II Negative (Negative)
== END ==
LOC: M SFHCWAGY 10:17
DX: Z12.4 Encounter for screening for malignant neoplasm of cervix (principal)
CPT/HCPCS: 88142

== ENCOUNTER → 2018-01-12 | Outpatient (REF) | payer OTHER ==
[2018-01-12 12:46] LABS: ALBUMIN 3.2 GM/DL (3.2-5.2); ALBUMIN/GLOBULIN RATIO 0.76 (1.00-1.93); ALKALINE PHOSPHATASE 123 U/L (45-117); ALT/SGPT 29 U/L (12-78); ANION GAP 8 MEQ/L (8-16); AST/SGOT 18 U/L (7-37); BILIRUBIN,TOTAL 0.3 MG/DL (0.2-1.0); BLOOD UREA NITROGEN 18 MG/DL (7-18); CALCIUM LEVEL 8.4 MG/DL (8.5-10.1); CARBON DIOXIDE LEVEL 31 MEQ/L (21-32); CHLORIDE LEVEL 97 MEQ/L (98-107); CHOLESTEROL LEVEL 251 MG/DL (<200); CHOLESTEROL RISK RATIO 5.122 (<5); CREATININE FOR GFR 0.74 MG/DL (0.55-1.30); FREE T4 0.83 NG/DL (0.76-1.46); GLOMERULAR FILTRATION RATE > 60.0 (>60); GLUCOSE, FASTING 263 MG/DL (70-100); HDL CHOLESTEROL 49 MG/DL (>40); LDL CHOLESTEROL 155.8 MG/DL (<100); NON-HDL-C 202 MG/DL; POTASSIUM SERUM 3.9 MEQ/L (3.5-5.1); SODIUM LEVEL 136 MEQ/L (136-145); TOTAL PROTEIN 7.4 GM/DL (6.4-8.2); TRIGLYCERIDES LEVEL 231 MG/DL (<150)
[2018-01-12 13:05] LABS: ESTIMATED AVERAGE GLUCOSE 358 MG/DL (60-110); HEMOGLOBIN A1c 14.1 %
[2018-01-12 13:18] LABS: MAU/CREAT RATIO 227.7 MCG/MG (0.0-30.0)
== END ==
LOC: M SFHCWAGY 08:21
DX: Z12.4 Encounter for screening for malignant neoplasm of cervix (principal)
CPT/HCPCS: 84443

== ENCOUNTER → 2018-02-15 | Outpatient (CLI) | payer OTHER | LOC: M RAD 09:40 | DX: Z12.31 Encounter for screening mammogram for malignant neoplasm of breast (principal) | CPT/HCPCS: 77066 ==

== ENCOUNTER 2018-05-17 18:36 | Emergency (ER) | payer OTHER ==
[2018-05-17] MEDS: diazePAM 5 MG TAB PO (22:15)
== END 2018-05-17 22:17 | disposition home or self-care (01) ==
LOC: M ED 18:36
DX: M54.12 Radiculopathy, cervical region (principal); E10.9 Type 1 diabetes mellitus without complications; I10 Essential (primary) hypertension; E03.9 Hypothyroidism, unspecified; Z79.82 Long term (current) use of aspirin; Z79.890 Hormone replacement therapy; Z79.4 Long term (current) use of insulin; Z79.899 Other long term (current) drug therapy
CPT/HCPCS: 99283

== ENCOUNTER 2018-10-31 21:20 | Emergency (ER) | payer OTHER ==
[~2018-10-31 21:20] MED LIST changes: +AUGM875T28 PO; +BENA2CRE2 TOP; +FURO40TA2 PO; +INSUH10VL SC; +MAGICMW SSP; +NORCOTAB PO; +PRED20TA PO; +TYLE500T78 PO; +VALI5TAB PO; +VITA50005 PO; +ZOFR4TAB14 PO
[2018-10-31] MEDS ORDERED: OUT OF ALL MEDS (21:38)
[2018-10-31 22:14] LABS: BASO # 0.1 10^3/uL (0.0-0.2); BASO % 0.7 % (0.0-1.0); EOS # 0.1 10^3/uL (0.0-0.50); EOS % 1.2 % (0.0-3.0); HEMATOCRIT 46.4 % (36.0-47.0); HEMOGLOBIN 15.1 g/dl (12.0-15.5); LYMPH # 2.4 10^3/uL (1.5-4.5); LYMPH % 25.9 % (24.0-44.0); MEAN CORPUSCULAR HEMOGLOBIN 28.3 pg (27.0-33.0); MEAN CORPUSCULAR HGB CONC 32.5 g/dl (32.0-36.5); MEAN CORPUSCULAR VOLUME 86.9 fl (80.0-96.0); MONO # 0.6 10^3/uL (0.0-0.8); MONO % 6.7 % (0.0-5.0); NEUTROPHILS % 65.2 % (36.0-66.0); PLATELET COUNT, AUTOMATED 274 10^3/uL (150-450); RED BLOOD COUNT 5.34 10^6/uL (4.00-5.40); WHITE BLOOD COUNT 9.1 10^3/uL (4.0-10.0)
[2018-10-31] MEDS ORDERED: HumuLIN R (REGULAR) INSULIN (NovoLIN R) **100U/ML** PER UNIT IV ONE (22:15)
[2018-10-31] MEDS ORDERED: NS 1,000 ML IV ONE (22:15)
[2018-10-31 22:20] LABS: APPEARANCE, URINE HAZY (CLEAR); BACTERIA, URINE AUTO 3+ (NEGATIVE); BILIRUBIN, URINE AUTO NEGATIVE (NEGATIVE); BLOOD, URINE BLOOD 1+ (NEGATIVE); COLOR, URINE STRAW (YELLOW); GLUCOSE, URINE (UA) AUTO 3+ mg/dL (NEGATIVE); KETONE, URINE AUTO NEGATIVE (NEGATIVE); LEUKOCYTE ESTERASE, URINE AUTO 1+ (NEGATIVE); MUCUS, URINE SMALL (NEGATIVE); NITRITE, URINE AUTO NEGATIVE (NEGATIVE); PROTEIN, URINE AUTO NEGATIVE (NEGATIVE); RBC, URINE AUTO 6 /HPF (0-3); SPECIFIC GRAVITY URINE AUTO 1.029 (1.002-1.035); SQUAMOUS EPITHELIAL CELL UR AU 3 /HPF (0-6); UROBILINOGEN, URINE AUTO 0.2 mg/dL (0.0-2.0); WBC, URINE AUTO 8 /HPF (0-3)
[2018-10-31 22:39] LABS: CALCIUM LEVEL 8.8 MG/DL (8.5-10.1); CREATININE FOR GFR 1.12 MG/DL (0.55-1.30); GLOMERULAR FILTRATION RATE 57.4 (>58); POTASSIUM SERUM 3.9 MEQ/L (3.5-5.1)
[2018-10-31] MEDS ORDERED: FLUCONAZOLE 100 MG TAB PO ONE (23:00)
[2018-10-31] MEDS ORDERED: CIPROFLOXACIN 500 MG TAB PO ONE (23:00)
[2018-11-01] MEDS ORDERED: HumuLIN R (REGULAR) INSULIN (NovoLIN R) **100U/ML** PER UNIT IV ONE ×2
[2018-11-01] MEDS ORDERED: INSULADS INJ (01:17)
[2018-11-01] MEDS ORDERED: GLIP10TA PO (01:17)
[2018-11-01] MEDS ORDERED: DIFL150T PO (01:19)
[2018-11-01] MEDS ORDERED: CIPR-249 PO (01:19)
[2018-11-01 01:30] VITALS: BP 149/91
== END 2018-11-01 01:38 | disposition home or self-care (01) ==
LOC: M ED 21:20
DX: E11.65 Type 2 diabetes mellitus with hyperglycemia (principal); N39.0 Urinary tract infection, site not specified; B37.3 Candidiasis of vulva and vagina; I10 Essential (primary) hypertension; E78.5 Hyperlipidemia, unspecified; G43.909 Migraine, unspecified, not intractable, without status migrainosus; J45.909 Unspecified asthma, uncomplicated; F17.200 Nicotine dependence, unspecified, uncomplicated; Z79.899 Other long term (current) drug therapy; Z79.82 Long term (current) use of aspirin; Z79.4 Long term (current) use of insulin

== ENCOUNTER 2018-11-17 18:03 | Emergency (ER) | payer OTHER ==
[~2018-11-17] VITALS: Ht 157.5 cm; Wt 124.5 kg
[~2018-11-17 18:03] MED LIST changes: +CIPR-249 PO; +DIFL150T PO; +GLIP10TA PO; +INSULADS INJ; +OUT OF ALL MEDS
[2018-11-17] MEDS ORDERED: HumaLOG INSULIN (NovoLOG) PER UNIT SC ONE (18:45)
[2018-11-17 19:04] LABS: APPEARANCE, URINE HAZY (CLEAR); BACTERIA, URINE AUTO NEGATIVE (NEGATIVE); BILIRUBIN, URINE AUTO NEGATIVE (NEGATIVE); BLOOD, URINE BLOOD NEGATIVE (NEGATIVE); COLOR, URINE STRAW (YELLOW); GLUCOSE, URINE (UA) AUTO 3+ mg/dL (NEGATIVE); KETONE, URINE AUTO NEGATIVE (NEGATIVE); LEUKOCYTE ESTERASE, URINE AUTO NEGATIVE (NEGATIVE); NITRITE, URINE AUTO NEGATIVE (NEGATIVE); PROTEIN, URINE AUTO NEGATIVE (NEGATIVE); RBC, URINE AUTO 1 /HPF (0-3); SPECIFIC GRAVITY URINE AUTO 1.026 (1.002-1.035); SQUAMOUS EPITHELIAL CELL UR AU 5 /HPF (0-6); UROBILINOGEN, URINE AUTO 0.2 mg/dL (0.0-2.0); WBC, URINE AUTO 22 /HPF (0-3)
[2018-11-17] MEDS ORDERED: MUCI600T37 PO (19:49)
[2018-11-17] MEDS ORDERED: BENZ200C70 PO (19:49)
[2018-11-17] MEDS ORDERED: VENTAER INH (19:49)
[2018-11-17] MEDS ORDERED: NOVOINJ3 SC (19:49)
[2018-11-17] MEDS ORDERED: ALBUTEROL 90 MCG/ACT 8GM HFA INHALER INH ONE (20:00)
[2018-11-17] MEDS ORDERED: BENZONATATE 100 MG CAP PO ONE (20:00)
[2018-11-17] MEDS ORDERED: ACETAMINOPHEN 325 MG TAB PO ONE (20:30)
[2018-11-17 20:49] VITALS: BP 135/83
[2018-11-17] MEDS ORDERED: NAPROXEN 250 MG TAB PO ONE (21:00)
--- NOTE | 2018-11-18 07:56 | REP ---
Chest two views HISTORY: 11/11/2017 Comparison: None The lungs are clear. The heart is normal in size. The pulmonary vasculature is normal in appearance. The bony structure is intact. IMPRESSION: No acute disease. Electronically Signed by Lj Fernandez MD 11/18/2018 07:48 A
== END 2018-11-17 20:50 | disposition home or self-care (01) ==
LOC: M ED 18:03
DX: J06.9 Acute upper respiratory infection, unspecified (principal); E11.65 Type 2 diabetes mellitus with hyperglycemia; G43.909 Migraine, unspecified, not intractable, without status migrainosus; I10 Essential (primary) hypertension; E78.00 Pure hypercholesterolemia, unspecified; J45.909 Unspecified asthma, uncomplicated; G47.33 Obstructive sleep apnea (adult) (pediatric); E03.9 Hypothyroidism, unspecified; M54.9 Dorsalgia, unspecified; K76.9 Liver disease, unspecified; F99 Mental disorder, not otherwise specified; Z79.899 Other long term (current) drug therapy; Z79.82 Long term (current) use of aspirin; Z79.4 Long term (current) use of insulin; Z87.442 Personal history of urinary calculi; Z88.8 Allergy status to other drugs, medicaments and biological substances

== ENCOUNTER 2019-02-23 21:37 | Inpatient (IN) | payer MEDICAID, OTHER ==
[~2019-02-23] VITALS: Ht 154.9 cm; Wt 122.0 kg
[~2019-02-23 21:37] MED LIST changes: +ADME100I SC; -ASPI1TAB PO; +ASPI81TA26 PO; +BENZ200C70 PO; +CYCL5TAB PO; +HYDR-3715 PO; +MUCI600T37 PO; -NORCOTAB PO; +NOVOINJ3 SC; +TOUJ1.2I SC
[2019-02-23 22:19] LABS: BASO # 0.1 10^3/uL (0.0-0.2); BASO % 0.7 % (0.0-1.0); EOS # 0.1 10^3/uL (0.0-0.50); EOS % 1.3 % (0.0-3.0); HEMATOCRIT 44.9 % (36.0-47.0); HEMOGLOBIN 14.9 g/dl (12.0-15.5); LYMPH # 2.3 10^3/uL (1.5-4.5); MEAN CORPUSCULAR HEMOGLOBIN 29.2 pg (27.0-33.0); MEAN CORPUSCULAR HGB CONC 33.2 g/dl (32.0-36.5); MEAN CORPUSCULAR VOLUME 87.9 fl (80.0-96.0); MONO # 0.4 10^3/uL (0.0-0.8); MONO % 4.7 % (0.0-5.0); NEUTROPHILS # 5.5 10^3/uL (1.8-7.7); NEUTROPHILS % 66.1 % (36.0-66.0); PLATELET COUNT, AUTOMATED 258 10^3/uL (150-450); RED BLOOD COUNT 5.11 10^6/uL (4.00-5.40); WHITE BLOOD COUNT 8.4 10^3/uL (4.0-10.0)
[2019-02-23 22:45] LABS: ALBUMIN 3.5 GM/DL (3.2-5.2); ALT/SGPT 37 U/L (12-78); BILIRUBIN,DIRECT < 0.1 MG/DL (0.0-0.2); BILIRUBIN,TOTAL 0.4 MG/DL (0.2-1.0); BLOOD UREA NITROGEN 9 MG/DL (7-18); CALCIUM LEVEL 8.4 MG/DL (8.5-10.1); CARBON DIOXIDE LEVEL 27 MEQ/L (21-32); CHLORIDE LEVEL 89 MEQ/L (98-107); CREATININE FOR GFR 1.01 MG/DL (0.55-1.30); GLOMERULAR FILTRATION RATE > 60.0 (>58); GLUCOSE, FASTING 733 MG/DL (70-100); LIPASE 236 U/L (73-393); POTASSIUM SERUM 4.1 MEQ/L (3.5-5.1); SODIUM LEVEL 127 MEQ/L (136-145); TOTAL PROTEIN 7.9 GM/DL (6.4-8.2)
[2019-02-23] MEDS ORDERED: HumuLIN R (REGULAR) INSULIN (NovoLIN R) **100U/ML** PER UNIT IV STA (22:47)
[2019-02-23] MEDS: NS 1,000 ML IV SCH (22:55)
[2019-02-23] MEDS ORDERED: NS 1,000 ML IV ONE ×2 (23:00→23:15)
[2019-02-23] MEDS ORDERED: INSULIN HUMAN REGULAR 100 UNITS in NS 99 ML IV SCH (23:08)
[2019-02-23] MEDS ORDERED: CYCL10TA PO (23:51)
[2019-02-23] MEDS ORDERED: PROAAER10 INH (23:51)
[2019-02-23] MEDS ORDERED: LISI10TA4 PO (23:52)
[2019-02-23] MEDS ORDERED: LORA-622 PO (23:52)
[2019-02-23] MEDS ORDERED: VITA500045 PO (23:52)
[2019-02-23] MEDS ORDERED: PRAV40TA2 PO (23:52)
[2019-02-24] MEDS ORDERED: CYCLOBENZAPRINE 10 MG TAB PO PRN
--- NOTE | 2019-02-24 00:17 | HPEPDOC ---
[facility] Medical History & Physical Date of Admission Feb 23, 2019 History and Physical CHIEF COMPLAINT: Elevated blood sugar and no insulin for 3 weeks HISTORY OF PRESENT ILLNESS: Cherise Ghotra is a 38 YO F with history of Insulin-dependent DM2 who presents to the ED for elevated blood sugar. . She states she was recently discharged from her PCP at [facility] due to noncompliance and in the process of finding a new physician. She also lost her insurance. Therefore, she has not been on any of her diabetes medicine for over 3 weeks. She was unable to get refills from her former PCP. Looking through her records, she has a long history of noncompliance with her treatment. In the past 3 weeks. She has not taken any insulin, any of her oral anti-hyperglycemics, nor has she checked her blood sugar as she ran out of test strips. She states she has been excessively thirsty with "cotton mouth" and has been urinating excessive amounts. Otherwise, she denies any recent illnesses, no fevers or chills or shortness of breath or palpitations. She denies any abdominal pain but states she sometimes gets nausea with no vomiting. She has not had any diarrhea. PAST MEDICAL HISTORY: 1. Heart murmur 2. Asthma 3. Diabetes Type 2 4. Hypothyroidism 5. Back pain 6. Obesity 7. Hypertension 8. Vit D deficiency 9. Allergic rhinitis 10. Mixed hyperlipidemia PAST SURGICAL HISTORY: 1. Gallbladder 1997 2. 2002 3. Rt Ankle repair 1988 4. Hernia repair 2011 5. Colposcopy 2016 SOCIAL HISTORY: Lives in [place]. Former smoker, quit >10 years ago. Denies EtOH. Lives with and cares for her disabled FAMILY HISTORY: noncontributory ALLERGIES: Please see below. REVIEW OF SYSTEMS: Negative other than what is stated in HPI HOME MEDICATIONS: Please see below. PHYSICAL EXAMINATION: VITAL SIGNS: see below GENERAL APPEARANCE: Morbidly obese female appearing stated age, sitting up in bed in no acute distress HEENT: No teeth, moist mucous membranes. No thyromegaly CARDIOVASCULAR: Regular rate and rhythm with a 2 out of 6 continuous systolic ejection murmur heard best in the left upper sternal border LUNGS: Clear to auscultation bilaterally ABDOMEN: Soft, nontender to palpation with no masses or organomegaly MUSCULOSKELETAL: Moves all extremities well EXTREMITIES: No clubbing, cyanosis or edema NEUROLOGICAL: Cranial nerves II through XII intact with no focal deficits appreciated PSYCHIATRIC: Normal mood, normal affect LABORATORY DATA: See below. IMAGING: CXR: Pending read, but in my preliminary reading. Costophrenic angles are sharp with slightly enlarged cardiac silhouette and evidence of minimal fluid overload. No obvious infiltrates. MICROBIOLOGY: Please see below. ASSESSMENT: This is a 38-year-old female with a history of insulin-dependent type 2 diabetes who presents with elevated blood sugar in the setting of 2-3 weeks of no insulin or oral medications. Most likely hyper glycemic hyperosmolar state. PLAN: #Hyperglycemic hyperosmolar state: On admission, sodium found to be 127 with normal anion gap and glucose 733. Corrected sodium is 139. Plasma osmolality is 311 -The patient is receiving aggressive normal saline fluid resuscitation in the ED -10 units of regular insulin given in ED -Will add dextrose to IV fluids once blood sugar decreases below 250 -Q1H blood sugars for now -Then will switch to SSI with hypoglycemic protocol #Hypertension: -Continue Lisinopril #Chronic pain: -Continue home flexeril DVT ppx: lovenox CODE STATUS: FULL CODE Vital Signs Vital Signs Date Time Temp Pulse Resp B/P (MAP) Pulse Ox O2 Delivery O2 Flow Rate FiO2 02/23/19 21:51 02/23/19 21:38 98.2 101 20 97 Room Air Laboratory Data Labs 24H Laboratory Tests 2 02/23/19 22:07: Immature Granulocyte % (Auto) 0.2, White Blood Count 8.4, Red Blood Count 5.11, Hemoglobin 14.9, Hematocrit 44.9, Mean Corpuscular Volume 87.9, Mean Corpuscular Hemoglobin 29.2, Mean Corpuscular Hemoglobin Concent 33.2, Red Cell Distribution Width 12.7, Platelet Count 258, Neutrophils (%) (Auto) 66.1H, Lymphocytes (%) (Auto) 27.0, Monocytes (%) (Auto) 4.7, Eosinophils (%) (Auto) 1.3, Basophils (%) (Auto) 0.7, Neutrophils # (Auto) 5.5, Lymphocytes # (Auto) 2.3, Monocytes # (Auto) 0.4, Eosinophils # (Auto) 0.1, Basophils # (Auto) 0.1, Nucleated Red Blood Cells % (auto) 0.0, Anion Gap 11, Glomerular Filtration Rate > 60.0, Osmolality 311H, Lactic Acid Level 1.7, Calcium Level 8.4L, Aspartate Amino Transf (AST/SGOT) 24, Alanine Aminotransferase (ALT/SGPT) 37, Alkaline Phosphatase 152H, Total Bilirubin 0.4, Direct Bilirubin < 0.1, Ammonia 42H, Total Protein 7.9, Albumin 3.5, Albumin/Globulin Ratio 0.80L, Lipase 236 02/23/19 22:57: Urine Color YELLOW, Urine Appearance CLOUDYH, Urine pH 6.0, Urine Specific [place] 1.028, Urine Protein NEGATIVE, Urine Glucose (UA) 3+H, Urine Ketones NE GATIVE, Urine Blood 3+H, Urine Nitrite NEGATIVE, Urine Bilirubin NEGATIVE, Urine Urobilinogen 0.2, Urine Leukocyte Esterase 2+H, Urine WBC (Auto) 28H, Urine RBC (Auto) TNTCH, Urine Hyaline Casts (Auto) 0, Urine Bacteria (Auto) NEGATIVE, Urine Squamous Epithelial Cells 8, Urine Sperm (Auto) CBC/BMP Laboratory Tests 02/23/19 22:07 Red Blood Count 5.11, Mean Corpuscular Volume 87.9, Mean Corpuscular Hemoglobin 29.2, Mean Corpuscular Hemoglobin Concent 33.2, Red Cell Distribution Width 12.7, Neutrophils (%) (Auto) 66.1 H, Lymphocytes (%) (Auto) 27.0, Monocytes (%) (Auto) 4.7, Eosinophils (%) (Auto) 1.3, Basophils (%) (Auto) 0.7, Neutrophils # (Auto) 5.5, Lymphocytes # (Auto) 2.3, Monocytes # (Auto) 0.4, Eosinophils # (Auto) 0.1, Basophils # (Auto) 0.1 Microbiology Microbiology 02/23/19 Urine Culture, Received Pending Home Medications Scheduled Aspirin (Aspirin EC) 81 Mg Tab, 81 MG PO DAILY Ergocalciferol (Vitamin D2) (Vitamin D2) 50,000 Unit Capsule, 50,000 UNIT PO QWEEK ON MONDAYS Glipizide (Glipizide) 10 Mg Tab, 10 MG PO BID Insulin Glargine,Hum.rec.anlog (Basaglar Kwikpen U-100) 100 Unit/1 Ml Insuln.pen, 45 UNIT SC BID Insulin Lispro (Admelog) 100 Unit/Ml Inj, 1 DOSE SC TID WITH MEALS PER SLIDING SCALE Levothyroxine Sodium (Levothyroxine Sodium) 100 Mcg Tab, 100 MCG PO DAILY Lisinopril (Lisinopril) 10 Mg Tablet, 10 MG PO DAILY Metformin HCl (Metformin HCl) 1,000 Mg Tab, 1,000 MG PO BID Pravastatin Sodium (Pravastatin Sodium) 40 Mg Tablet, 40 MG PO DAILY Scheduled PRN Albuterol Sulfate (Proair Hfa) 8.5 Gm Hfa.aer.ad, 2 PUFF INH Q4H PRN for SHORTNESS OF BREATH Allergies Coded Allergies: NSAIDS (Non-Steroidal Anti-Inflamma (Verified Allergy, Intermediate, 02/23/19) GME ATTESTATION GME ATTESTATION My faculty preceptor for this patient encounter was physically present during the encounter and was fully available. All aspects of the patient interview, examination, medical decision making process, and medical care plan development were reviewed and approved by the faculty preceptor. The faculty preceptor is aware and concurs with the plan as stated in the body of this note and will attest to such by his/her cosignature. ATTENDING NOTE I have reviewed the residents note and have personally examined the patient. I agree with the Residents physical examination and assessment and plan. SWETHA MONTERO MD Feb 24, 2019 00:17 JOJO BRUNER MD Feb 25, 2019 19:48
[2019-02-24 00:40] VITALS: BP 140/115
[2019-02-24 00:51] LABS: HEMOGLOBIN A1c 14.5 %
[2019-02-24] MEDS ORDERED: DEXTROSE 50% 50 ML SYRINGE IV PRN (01:00)
[2019-02-24] MEDS ORDERED: GLUCAGON FOR INJ 1 MG VIAL (J1610) SC PRN (01:00)
[2019-02-24] MEDS ORDERED: GLUCOSE 4 GM CHEW TABLET PO PRN (01:00)
[2019-02-24] MEDS ORDERED: INSULIN HUMAN REGULAR 100 UNITS in NS 99 ML IV SCH (01:15)
[2019-02-24] MEDS: INSULIN IV RATE CHANGE DOCUMENTATION ML/HR XX SCH ×3 (01:59→06:04)
[2019-02-24 04:00] VITALS: BP 134/83
[2019-02-24] MEDS: NS 1,000 ML IV SCH (06:05)
[2019-02-24] MEDS: LEVOTHYROXINE 100MCG TABLET (0.1MG) PO SCH (06:06)
[2019-02-24 07:37] LABS: BASO % 0.6 % (0.0-1.0); EOS # 0.2 10^3/uL (0.0-0.50); EOS % 2.5 % (0.0-3.0); HEMATOCRIT 39.9 % (36.0-47.0); HEMOGLOBIN 13.5 g/dl (12.0-15.5); LYMPH # 2.6 10^3/uL (1.5-4.5); LYMPH % 39.9 % (24.0-44.0); MEAN CORPUSCULAR HEMOGLOBIN 29.3 pg (27.0-33.0); MEAN CORPUSCULAR HGB CONC 33.8 g/dl (32.0-36.5); MEAN CORPUSCULAR VOLUME 86.6 fl (80.0-96.0); MONO # 0.4 10^3/uL (0.0-0.8); MONO % 6.4 % (0.0-5.0); NEUTROPHILS # 3.3 10^3/uL (1.8-7.7); NEUTROPHILS % 50.4 % (36.0-66.0); PLATELET COUNT, AUTOMATED 192 10^3/uL (150-450); RED BLOOD COUNT 4.61 10^6/uL (4.00-5.40); WHITE BLOOD COUNT 6.5 10^3/uL (4.0-10.0)
[2019-02-24 08:00] VITALS: BP 143/94
[2019-02-24 08:19] LABS: BLOOD UREA NITROGEN 8 MG/DL (7-18); CALCIUM LEVEL 7.7 MG/DL (8.5-10.1); CARBON DIOXIDE LEVEL 25 MEQ/L (21-32); CHLORIDE LEVEL 104 MEQ/L (98-107); CREATININE FOR GFR 0.48 MG/DL (0.55-1.30); GLOMERULAR FILTRATION RATE > 60.0 (>58); GLUCOSE, FASTING 239 MG/DL (70-100); MAGNESIUM LEVEL 1.9 MG/DL (1.8-2.4); POTASSIUM SERUM 3.4 MEQ/L (3.5-5.1); SODIUM LEVEL 139 MEQ/L (136-145)
[2019-02-24] MEDS ORDERED: POTASSIUM CHLORIDE 10 MEQ SR TABLET PO ONE (09:00)
[2019-02-24] MEDS ORDERED: LEVEMIR (INSULIN DETEMIR) 1 UNITS/0.01ML SC SCH (09:00)
[2019-02-24 09:09] LABS: FREE T4 0.81 NG/DL (0.76-1.46)
[2019-02-24] MEDS: LISINOPRIL 10 MG TAB PO SCH (09:09)
[2019-02-24] MEDS: PRAVASTATIN 20 MG TAB PO SCH (09:09)
[2019-02-24] MEDS: FUROSEMIDE 40 MG TAB PO SCH (09:09)
[2019-02-24] MEDS: ENOXAPARIN 40 MG/0.4 ML SYRINGE (J1650) SC SCH (09:10)
[2019-02-24] MEDS: HumaLOG INSULIN (NovoLOG) PER UNIT SC SCH ×3 (09:21→18:30)
[2019-02-24 11:46] VITALS: BP 132/85
[2019-02-24 11:55] LABS: BLOOD UREA NITROGEN 8 MG/DL (7-18); CALCIUM LEVEL 7.7 MG/DL (8.5-10.1); CARBON DIOXIDE LEVEL 24 MEQ/L (21-32); CHLORIDE LEVEL 104 MEQ/L (98-107); CREATININE FOR GFR 0.61 MG/DL (0.55-1.30); GLOMERULAR FILTRATION RATE > 60.0 (>58); GLUCOSE, FASTING 354 MG/DL (70-100); POTASSIUM SERUM 3.6 MEQ/L (3.5-5.1); SODIUM LEVEL 136 MEQ/L (136-145)
[2019-02-24 14:00] VITALS: BP 104/55
[2019-02-24 15:34] LABS: BLOOD UREA NITROGEN 9 MG/DL (7-18); CALCIUM LEVEL 7.9 MG/DL (8.5-10.1); CARBON DIOXIDE LEVEL 28 MEQ/L (21-32); CHLORIDE LEVEL 102 MEQ/L (98-107); CREATININE FOR GFR 0.79 MG/DL (0.55-1.30); GLOMERULAR FILTRATION RATE > 60.0 (>58); GLUCOSE, FASTING 387 MG/DL (70-100); POTASSIUM SERUM 4.1 MEQ/L (3.5-5.1); SODIUM LEVEL 136 MEQ/L (136-145)
[2019-02-24] MEDS ORDERED: HumaLOG INSULIN (NovoLOG) PER UNIT SC SCH (21:00)
[2019-02-24 21:52] LABS: BLOOD UREA NITROGEN 11 MG/DL (7-18); CALCIUM LEVEL 8.2 MG/DL (8.5-10.1); CARBON DIOXIDE LEVEL 27 MEQ/L (21-32); CHLORIDE LEVEL 101 MEQ/L (98-107); CREATININE FOR GFR 0.91 MG/DL (0.55-1.30); GLOMERULAR FILTRATION RATE > 60.0 (>58); GLUCOSE, FASTING 344 MG/DL (70-100); POTASSIUM SERUM 4.3 MEQ/L (3.5-5.1); SODIUM LEVEL 136 MEQ/L (136-145)
[2019-02-24 22:00] VITALS: BP 116/62
[2019-02-24] MEDS: LEVEMIR (INSULIN DETEMIR) 1 UNITS/0.01ML SC SCH (22:15)
[2019-02-25 03:15] LABS: BLOOD UREA NITROGEN 11 MG/DL (7-18); CALCIUM LEVEL 7.7 MG/DL (8.5-10.1); CARBON DIOXIDE LEVEL 21 MEQ/L (21-32); CHLORIDE LEVEL 106 MEQ/L (98-107); CREATININE FOR GFR 0.68 MG/DL (0.55-1.30); GLOMERULAR FILTRATION RATE > 60.0 (>58); GLUCOSE, FASTING 239 MG/DL (70-100); SODIUM LEVEL 140 MEQ/L (136-145)
[2019-02-25] MEDS: LEVOTHYROXINE 100MCG TABLET (0.1MG) PO SCH (05:59)
[2019-02-25 06:00] VITALS: BP 111/55
[2019-02-25 06:34] LABS: BASO # 0.1 10^3/uL (0.0-0.2); BASO % 0.8 % (0.0-1.0); EOS # 0.2 10^3/uL (0.0-0.50); EOS % 2.8 % (0.0-3.0); LYMPH # 2.6 10^3/uL (1.5-4.5); LYMPH % 40.7 % (24.0-44.0); MEAN CORPUSCULAR HEMOGLOBIN 28.8 pg (27.0-33.0); MEAN CORPUSCULAR HGB CONC 32.6 g/dl (32.0-36.5); MEAN CORPUSCULAR VOLUME 88.5 fl (80.0-96.0); MONO # 0.4 10^3/uL (0.0-0.8); MONO % 6.2 % (0.0-5.0); NEUTROPHILS # 3.1 10^3/uL (1.8-7.7); NEUTROPHILS % 49.3 % (36.0-66.0); PLATELET COUNT, AUTOMATED 213 10^3/uL (150-450); RED BLOOD COUNT 4.86 10^6/uL (4.00-5.40); WHITE BLOOD COUNT 6.3 10^3/uL (4.0-10.0)
[2019-02-25 06:52] LABS: BLOOD UREA NITROGEN 11 MG/DL (7-18); CALCIUM LEVEL 8.4 MG/DL (8.5-10.1); CARBON DIOXIDE LEVEL 28 MEQ/L (21-32); CHLORIDE LEVEL 104 MEQ/L (98-107); CREATININE FOR GFR 0.68 MG/DL (0.55-1.30); GLOMERULAR FILTRATION RATE > 60.0 (>58); GLUCOSE, FASTING 220 MG/DL (70-100); POTASSIUM SERUM 3.7 MEQ/L (3.5-5.1); SODIUM LEVEL 139 MEQ/L (136-145)
[2019-02-25] MEDS: HumaLOG INSULIN (NovoLOG) PER UNIT SC SCH ×2 (08:43→12:14)
[2019-02-25] MEDS: LEVEMIR (INSULIN DETEMIR) 1 UNITS/0.01ML SC SCH (08:43)
[2019-02-25] MEDS: ENOXAPARIN 40 MG/0.4 ML SYRINGE (J1650) SC SCH (08:43)
[2019-02-25 08:44] VITALS: BP 136/88
[2019-02-25] MEDS: LISINOPRIL 10 MG TAB PO SCH (08:44)
[2019-02-25] MEDS: PRAVASTATIN 20 MG TAB PO SCH (08:44)
[2019-02-25] MEDS: FUROSEMIDE 40 MG TAB PO SCH (08:44)
--- NOTE | 2019-02-25 09:26 | REP ---
Portable chest x-ray: Single view. History: Cough. Comparison study: November 17, 2018. Findings: EKG monitoring electrodes overlie the chest. The lungs are well inflated and free of infiltrate. Pleural angles are sharp. Cardiomediastinal silhouette is unremarkable. No acute bony abnormality is seen. There is a mild curvature in the thoracic spine unchanged. There are calcifications adjacent to the humeral head on the right shoulder. Impression: No active disease. Electronically Signed by Dick Santana MD 02/24/2019 08:11 A
[2019-02-25] MEDS ORDERED: TOUJ1.2I SC (09:34)
[2019-02-25] MEDS ORDERED: METF10004 PO (09:34)
[2019-02-25] MEDS ORDERED: VITA500045 PO (09:34)
[2019-02-25] MEDS ORDERED: ASPI81TA26 PO (09:34)
[2019-02-25] MEDS ORDERED: LEVO100T5 PO (09:34)
[2019-02-25] MEDS ORDERED: PRAV40TA2 PO (09:34)
[2019-02-25] MEDS ORDERED: PROAAER10 INH (09:34)
[2019-02-25] MEDS ORDERED: GLIP10TA6 PO (09:34)
[2019-02-25] MEDS ORDERED: ADME100I SC (09:34)
[2019-02-25] MEDS ORDERED: LISI10TA4 PO (09:34)
[2019-02-25 09:52] LABS: BLOOD UREA NITROGEN 10 MG/DL (7-18); CALCIUM LEVEL 8.4 MG/DL (8.5-10.1); CARBON DIOXIDE LEVEL 21 MEQ/L (21-32); CHLORIDE LEVEL 104 MEQ/L (98-107); CREATININE FOR GFR 0.61 MG/DL (0.55-1.30); GLOMERULAR FILTRATION RATE > 60.0 (>58); GLUCOSE, FASTING 299 MG/DL (70-100); POTASSIUM SERUM 4.1 MEQ/L (3.5-5.1); SODIUM LEVEL 131 MEQ/L (136-145)
--- NOTE | 2019-02-25 10:55 | IPN ---
DATE OF VISIT: 02/24/2019 SUBJECTIVE: The patient is seen and examined in the room today. The patient feels better after admission. The patient states that she was being followed with Ekaterina Arrieta previously; however, due to the frequent no show, the patient transferred to [facility], however, the patient has some issue with insurance and the patient has been out of her insulin regimen for several days. OBJECTIVE: VITAL SIGNS: Temperature 97.6, pulse 79, respirations 16, blood pressure 143/94, post ox 98% on room air. GENERAL: The patient is alert and awake, obese. No signs of acute distress. HEENT: Normocephalic atraumatic. Extraocular muscles intact. CARDIOVASCULAR: Positive S1, S2. Regular rate without any murmurs. LUNGS: Clear to auscultation bilaterally. ABDOMEN: Soft, nontender, nondistended. Bowel sounds present. EXTREMITIES: No edema. LABORATORY DATA: WBC 6.5, hemoglobin 13.5, hematocrit 39.9, platelet count is 192. Sodium 136, potassium 4.1, chloride 102, carbon dioxide 28, BUN 9, creatinine 0.79, GFR greater than 60, fasting glucose 387, calcium 7.9. ASSESSMENT AND PLAN: 1. Hyperglycemic hyperosmolar state. The patient has being running out of insulin for multiple days. The patient came in here with osmolarity with glucose at 733. According to the record the patient is supposed to take Metformin, Glipizide, Toujeo 90 units daily in a sliding scale. The patient is on the heparin drip since admission. Glucose however is improving, will place the patient on insulin drip to subcutaneus long-acting insulin. Continue to follow the electrolytes, supplement accordingly. Will follow with the social media editor to help with the patient's medication in the outpatient setting. The patient may need to follow with outpatient provider. 2. Asthma. No exacerbation at this time, continue to monitor. 3. Hypothyroidism. Normal free T4. Continue current regimen. 4. Hypertension. Blood pressure is in satisfactory range. On lisinopril and Lasix. 5. Dyslipidemia. On Pravastatin. 6. Deep venous thrombosis (DVT) prophylaxis. On thromboembolic deterrent stocking (TEDs) compression.
[2019-02-25] MEDS ORDERED: BASA100I SC (12:04)
--- NOTE | 2019-02-25 23:04 | DSES ---
DATE OF ADMISSION: 02/23/2019 DATE OF DISCHARGE: 02/25/2019 CONSULTANTS: None. DISCHARGE DIAGNOSES: 1. Hyperglycemic hyperosmolar state. 2. Asthma. 3. Hypothyroidism. 4. Hypertension. 5. Dyslipidemia. 6. Medical noncompliance. HOSPITALIZATION COURSE: The patient is a 38-year-old female who presented to [facility] on 02/23/2019 with elevated glucose level. The patient has been noncompliant in the outpatient setting; therefore, patient was discharged from the clinic. The patient was in the process of establishing with a new healthcare provider. However, the patient has been running out of her medications, such as insulin. Therefore, the patient came to [facility] emergency room due to elevated glucose level. The patient was diagnosed with hyperglycemic hyperosmolar state (HHS) and admitted under hospitalist service. The patient was started on insulin drip in the intensive care unit (ICU). The patient was started on intravenous (IV) fluid support. After the glucose was under better control, insulin drip was discontinued, patient switched to the long-acting insulin. Patient's electrolyte and fluid status was monitored closely. On 02/25/2019, patient was determined stable for discharge. All of patient's home medications were renewed, and we also confirmed patient's outpatient primary care provider appointment before discharge. VITAL SIGNS ON DISCHARGE: Show temperature 97.3, pulse is 71, respirations 18, blood pressure 111/55, pulse oximetry is 95% in room air. LABORATORY DATA: On the day of discharge showed WBC 6.3, hemoglobin 14, hematocrit 43, platelet count is 213. Sodium is 131, potassium is 4.1, chloride is 104, carbon dioxide 21, BUN 10, creatinine 0.61, GFR greater than 60, fasting glucose 299, calcium is 8.4. Microbiology: Urine culture showed contamination. IMAGING STUDY: Chest x-ray demonstrated no acute disease. DISCHARGE MEDICATIONS: - Basaglar 45 units subcu twice a day - albuterol two puff inhalation every 4 hours as needed for shortness of breath - aspirin 81 mg by mouth daily - vitamin D2 50,000 units by mouth weekly - glipizide 10 mg mouth twice a day - insulin Lispro subcu three times a day per sliding scale - levothyroxine 100 mcg by mouth daily - lisinopril 10 mg by mouth daily - metformin 1000 mg by mouth twice a day - pravastatin 40 mg by mouth daily DISCHARGE INSTRUCTIONS: Discontinue line. Discharge home. Activity as tolerated. Consistent carbohydrate diet as tolerated. Patient should followup with new primary care provider at the scheduled time. Patient recommended to continue insulin regimen as instructed. DISCHARGE CONDITION: Fair. DISCHARGE TIME: Greater than 30 minutes.
== END 2019-02-25 13:15 | disposition home or self-care (01) | DRG 420 ==
LOC: M ED 21:37 → M ED INP 23:08 → M ICU 02-24 00:37 → M MSPAV 02-24 11:43
PROVIDERS: ADMIT Internal Medicine Nephrology; ATTEND Internal Medicine
DX: E11.00 Type 2 diabetes mellitus with hyperosmolarity without nonketotic hyperglycemic-hyperosmolar coma (NKHHC) (principal); I10 Essential (primary) hypertension; E66.9 Obesity, unspecified; J45.909 Unspecified asthma, uncomplicated; E03.9 Hypothyroidism, unspecified; Z91.19 Patient's noncompliance with other medical treatment and regimen; E11.65 Type 2 diabetes mellitus with hyperglycemia; Z79.82 Long term (current) use of aspirin; Z79.899 Other long term (current) drug therapy; E78.5 Hyperlipidemia, unspecified; E55.9 Vitamin D deficiency, unspecified; M54.5 Low back pain; Z87.891 Personal history of nicotine dependence

== ENCOUNTER 2019-04-02 01:00 | Emergency (ER) | payer OTHER ==
[~2019-04-02] VITALS: Ht 157.5 cm; Wt 125.0 kg
[~2019-04-02 01:00] MED LIST changes: +BASA100I SC; +CYCL10TA PO; +LISI10TA4 PO; +LORA-622 PO; +PRAV40TA2 PO; +PROAAER10 INH; +VITA500045 PO
[2019-04-02] MEDS ORDERED: ANUSOL HC CREAM 30GM TOP STA (01:25)
[2019-04-02] MEDS ORDERED: LIDOCAINE 4% CREAM 5GM (LMX4) TOP STA (01:25)
[2019-04-02] MEDS ORDERED: diphenhydrAMINE 50 MG CAP PO ONE (01:30)
[2019-04-02] MEDS ORDERED: HYDROCORTISONE 1% CREAM 30 GM TOP STA (01:31)
[2019-04-02] MEDS ORDERED: LIDO1CRE2 EX (01:47)
[2019-04-02] MEDS ORDERED: HYDR25OIN TOP (01:47)
[2019-04-02 02:01] VITALS: BP 178/84
== END 2019-04-02 02:02 | disposition home or self-care (01) ==
LOC: M ED 01:00
DX: L55.0 Sunburn of first degree (principal); S30.860A Insect bite (nonvenomous) of lower back and pelvis, initial encounter; Y92.9 Unspecified place or not applicable; Y93.9 Activity, unspecified; E11.9 Type 2 diabetes mellitus without complications; I10 Essential (primary) hypertension; J45.909 Unspecified asthma, uncomplicated; Z79.4 Long term (current) use of insulin; Z79.51 Long term (current) use of inhaled steroids; Z79.82 Long term (current) use of aspirin; Z79.899 Other long term (current) drug therapy

== ENCOUNTER 2019-04-06 23:46 | Emergency (ER) | payer OTHER ==
[~2019-04-06] VITALS: Ht 162.6 cm; Wt 125.0 kg
[2019-04-06 23:46] VITALS: BP 176/107
[~2019-04-06 23:46] MED LIST changes: +HYDR25OIN TOP; +LIDO1CRE2 EX
[2019-04-07] MEDS ORDERED: GABA-843 PO (00:43)
[2019-04-07] MEDS ORDERED: GABAPENTIN 300 MG CAP PO ONE (00:45)
== END 2019-04-07 00:56 | disposition home or self-care (01) ==
LOC: M ED 23:46
DX: M25.512 Pain in left shoulder (principal); M79.622 Pain in left upper arm; E11.9 Type 2 diabetes mellitus without complications; G43.909 Migraine, unspecified, not intractable, without status migrainosus; Z88.6 Allergy status to analgesic agent; Z79.899 Other long term (current) drug therapy; Z79.4 Long term (current) use of insulin; Z79.82 Long term (current) use of aspirin

== ENCOUNTER 2019-05-18 22:17 | Emergency (ER) | payer OTHER ==
[~2019-05-18] VITALS: Ht 157.5 cm; Wt 104.5 kg
[~2019-05-18 22:17] MED LIST changes: +GABA-843 PO
[2019-05-18] MEDS ORDERED: MELO15TA28 (22:25)
[2019-05-18] MEDS ORDERED: NS 1,000 ML IV ONE (22:45)
[2019-05-18 23:06] LABS: BASO % 0.4 % (0.0-1.0); EOS # 0.2 10^3/uL (0.0-0.50); EOS % 1.7 % (0.0-3.0); HEMATOCRIT 40.5 % (36.0-47.0); HEMOGLOBIN 13.3 g/dl (12.0-15.5); LYMPH # 1.4 10^3/uL (1.5-4.5); LYMPH % 15.1 % (24.0-44.0); MEAN CORPUSCULAR HGB CONC 32.8 g/dl (32.0-36.5); MEAN CORPUSCULAR VOLUME 88.4 fl (80.0-96.0); MONO # 0.5 10^3/uL (0.0-0.8); MONO % 5.3 % (0.0-5.0); NEUTROPHILS # 7.2 10^3/uL (1.8-7.7); NEUTROPHILS % 77.1 % (36.0-66.0); PLATELET COUNT, AUTOMATED 234 10^3/uL (150-450); RED BLOOD COUNT 4.58 10^6/uL (4.00-5.40); WHITE BLOOD COUNT 9.3 10^3/uL (4.0-10.0)
[2019-05-18] MEDS ORDERED: LISINOPRIL 20 MG TAB PO ONE (23:30)
[2019-05-18 23:32] LABS: INR 0.98; PROTHROMBIN TIME 12.7 SECONDS (11.8-14.0)
[2019-05-18 23:32] LABS: HCG, SERUM QUALITATIVE NEGATIVE (NEGATIVE)
[2019-05-18 23:49] LABS: BLOOD UREA NITROGEN 8 MG/DL (7-18); CARBON DIOXIDE LEVEL 28 MEQ/L (21-32); CHLORIDE LEVEL 102 MEQ/L (98-107); CK-MB VALUE MASS < 1.0 NG/ML (<3.6); CPK CREATINE PHOSPHOKINASE 53 U/L (26-192); ETHYL ALCOHOL (ETHANOL) < 0.003 % (0.000-0.010); GLOMERULAR FILTRATION RATE > 60.0 (>58); GLUCOSE, FASTING 250 MG/DL (70-100); MB/CK RELATIVE INDEX 1.89 (< OR =4); POTASSIUM SERUM 3.2 MEQ/L (3.5-5.1); SODIUM LEVEL 138 MEQ/L (136-145); TROPONIN I < 0.02 NG/ML (< 0.10)
[2019-05-19 01:19] LABS: AMPHETAMINES LEVEL URINE NEGATIVE (NEGATIVE); BARBITURATES URINE NEGATIVE (NEGATIVE); BENZODIAZEPINES URINE NEGATIVE (NEGATIVE); CANNABINOIDS URINE NEGATIVE (NEGATIVE); COCAINE METABOLITE URINE NEGATIVE (NEGATIVE); METHADONE URINE NEGATIVE (NEGATIVE); OPIATES URINE NEGATIVE (NEGATIVE); PHENCYCLIDINE URINE NEGATIVE (NEGATIVE)
[2019-05-19 01:26] VITALS: BP 168/92
[2019-05-19] MEDS ORDERED: CIPR-250 PO (01:28)
[2019-05-19] MEDS ORDERED: DIFL150T PO (01:28)
--- NOTE | 2019-05-19 15:38 | ECGEPIP ---
[facility] - ED Test Date: 2019-05-18 Pat Name: NUVIA MARTINEZ Department: Room: - Gender: Female [id number] Programmer: arleen : 1980 Requested By: MAURICE ANNE Order Number: [id number] Reading MD: Dea Ba Measurements Intervals [place] Rate: 99 P: 7 FL: 190 QRS: QRSD: 99 T: 30 QT: 344 QTc: 443 Interpretive Statements SINUS RHYTHM PROBABLE INFERIOR MYOCARDIAL INFARCTION, PROBABLY OLD LESS PRONOUNCED ST CHANGES COMPARED 11/11/17 Electronically Signed on 05-19-2019 15:38:15 EDT by Dea Ba
== END 2019-05-19 01:42 | disposition home or self-care (01) ==
LOC: M ED 22:17
DX: E86.0 Dehydration (principal); B37.41 Candidal cystitis and urethritis; E11.9 Type 2 diabetes mellitus without complications; G43.909 Migraine, unspecified, not intractable, without status migrainosus; Z79.899 Other long term (current) drug therapy; Z79.890 Hormone replacement therapy; Z79.4 Long term (current) use of insulin; Z88.8 Allergy status to other drugs, medicaments and biological substances
CPT/HCPCS: 36415; 80048; 80307; 81001; 82550; 82553; 83735; 84443; 84703; 85025; 85610; 87086; 93005; 93041; 94760; 99285; G0480

== ENCOUNTER → 2019-07-23 | Outpatient (REF) | payer OTHER ==
[~2019-07-23] MED LIST changes: +CIPR-250 PO; +MELO15TA28
[2019-07-23 14:09] LABS: BASO # 0.1 10^3/uL (0.0-0.2); BASO % 0.6 % (0.0-1.0); EOS # 0.1 10^3/uL (0.0-0.5); EOS % 1.4 % (0.0-3.0); HEMATOCRIT 44.7 % (36.0-47.0); HEMOGLOBIN 14.4 g/dl (12.0-15.5); LYMPH # 2.4 10^3/uL (1.5-5.0); LYMPH % 27.7 % (24.0-44.0); MEAN CORPUSCULAR HGB CONC 32.2 g/dl (32.0-36.5); MEAN CORPUSCULAR VOLUME 86.8 fl (80.0-96.0); MONO # 0.4 10^3/uL (0.0-0.8); MONO % 4.6 % (0.0-5.0); NEUTROPHILS # 5.7 10^3/uL (1.5-8.5); NEUTROPHILS % 65.4 % (36.0-66.0); PLATELET COUNT, AUTOMATED 311 10^3/uL (150-450); RED BLOOD COUNT 5.15 10^6/uL (4.00-5.40); WHITE BLOOD COUNT 8.7 10^3/uL (4.0-10.0)
[2019-07-23 14:28] LABS: ALBUMIN 3.2 GM/DL (3.2-5.2); ALT/SGPT 22 U/L (12-78); BILIRUBIN,TOTAL 0.5 MG/DL (0.2-1.0); BLOOD UREA NITROGEN 12 MG/DL (7-18); CALCIUM LEVEL 9.4 MG/DL (8.5-10.1); CARBON DIOXIDE LEVEL 25 MEQ/L (21-32); CHLORIDE LEVEL 101 MEQ/L (98-107); CHOLESTEROL LEVEL 224 MG/DL (<200); CHOLESTEROL RISK RATIO 3.612 (<5); GLOMERULAR FILTRATION RATE > 60.0 (>58); GLUCOSE, FASTING 360 MG/DL (70-100); HDL CHOLESTEROL 62 MG/DL (>40); LDL CHOLESTEROL 115 MG/DL (<100); NON-HDL-C 162 MG/DL; SODIUM LEVEL 137 MEQ/L (136-145); TOTAL PROTEIN 7.8 GM/DL (6.4-8.2); TRIGLYCERIDES LEVEL 235 MG/DL (<150)
[2019-07-23 14:36] LABS: HEMOGLOBIN A1c 12.5 %
== END ==
LOC: M LAB REF 13:50
PROVIDERS: ATTEND Nurse Practitioner Family
DX: I10 Essential (primary) hypertension (principal); E11.9 Type 2 diabetes mellitus without complications; E78.5 Hyperlipidemia, unspecified

== ENCOUNTER 2019-08-28 16:27 | Emergency (ER) | payer OTHER ==
[2019-08-28] MEDS ORDERED: HumuLIN R (REGULAR) INSULIN (NovoLIN R) **100U/ML** PER UNIT IV ONE (17:00)
[2019-08-28] MEDS ORDERED: NS 1,000 ML IV ONE (17:00)
[2019-08-28] MEDS ORDERED: PANTOPRAZOLE 40MG INJ (PROTONIX) (C9113) IV ONE (17:00)
[2019-08-28 17:48] LABS: BASO # 0.1 10^3/uL (0.0-0.2); BASO % 0.7 % (0.0-1.0); EOS # 0.1 10^3/uL (0.0-0.5); EOS % 0.9 % (0.0-3.0); HEMATOCRIT 46.2 % (36.0-47.0); LYMPH # 1.6 10^3/uL (1.5-5.0); LYMPH % 18.4 % (24.0-44.0); MEAN CORPUSCULAR HEMOGLOBIN 27.6 pg (27.0-33.0); MEAN CORPUSCULAR HGB CONC 32.5 g/dl (32.0-36.5); MEAN CORPUSCULAR VOLUME 85.1 fl (80.0-96.0); MONO # 0.2 10^3/uL (0.0-0.8); MONO % 2.5 % (0.0-5.0); NEUTROPHILS # 6.7 10^3/uL (1.5-8.5); NEUTROPHILS % 77.3 % (36.0-66.0); PLATELET COUNT, AUTOMATED 293 10^3/uL (150-450); RED BLOOD COUNT 5.43 10^6/uL (4.00-5.40); WHITE BLOOD COUNT 8.6 10^3/uL (4.0-10.0)
[2019-08-28 18:13] LABS: ALT/SGPT 19 U/L (12-78); BILIRUBIN,DIRECT < 0.1 MG/DL (0.0-0.2); BILIRUBIN,TOTAL 0.4 MG/DL (0.2-1.0); BLOOD UREA NITROGEN 11 MG/DL (7-18); CALCIUM LEVEL 9.3 MG/DL (8.5-10.1); CARBON DIOXIDE LEVEL 30 MEQ/L (21-32); CHLORIDE LEVEL 97 MEQ/L (98-107); CREATININE FOR GFR 0.75 MG/DL (0.55-1.30); GLOMERULAR FILTRATION RATE > 60.0 (>58); GLUCOSE, FASTING 402 MG/DL (70-100); LIPASE 107 U/L (73-393); POTASSIUM SERUM 4.3 MEQ/L (3.5-5.1); SODIUM LEVEL 135 MEQ/L (136-145); TOTAL PROTEIN 7.3 GM/DL (6.4-8.2)
[2019-08-28 19:00] VITALS: BP 150/85
== END 2019-08-28 19:17 | disposition home or self-care (01) ==
LOC: M ED 16:27
DX: R19.7 Diarrhea, unspecified (principal); E11.9 Type 2 diabetes mellitus without complications; I10 Essential (primary) hypertension; J45.909 Unspecified asthma, uncomplicated; E07.9 Disorder of thyroid, unspecified; Z79.4 Long term (current) use of insulin; Z79.890 Hormone replacement therapy; Z79.82 Long term (current) use of aspirin; Z79.899 Other long term (current) drug therapy; Z88.8 Allergy status to other drugs, medicaments and biological substances; Z87.891 Personal history of nicotine dependence; Z82.49 Family history of ischemic heart disease and other diseases of the circulatory system
CPT/HCPCS: 80048; 80076; 83690; 85025; 96374; 99284; C9113

== ENCOUNTER 2019-09-07 22:32 | Emergency (ER) | payer OTHER ==
[~2019-09-07] VITALS: Ht 157.5 cm; Wt 122.7 kg
--- NOTE | 2019-09-07 22:46 | REPVR ---
PROCEDURE INFORMATION: Exam: CT Head Without Contrast Exam date and time: 09/07/2019 10:39 PM Clinical history: 38 years old, female; Other: Neuro symptoms; Additional info: Neuro symp TECHNIQUE: Imaging protocol: Computed tomography of the head without contrast. Radiation optimization: All CT scans at this facility use at least one of these dose optimization techniques: automated exposure control; mA and/or kV adjustment per patient size (includes targeted exams where dose is matched to clinical indication); or iterative reconstruction. Other technique: STROKE PROTOCOL was implemented. COMPARISON: No relevant prior studies available. FINDINGS: Brain: Normal. No hemorrhage. Unremarkable white matter. No mass effect. Ventricles: Normal. No ventriculomegaly. Bones/joints: Unremarkable. No acute fracture. Sinuses: Visualized sinuses are unremarkable. No fluid levels. Mastoid air cells: Visualized mastoid air cells are well aerated. Soft tissues: Unremarkable. IMPRESSION: No acute intracranial abnormality. ASSESSMENT: ASPECTS ([place] Stroke Program Early CT Score) is 10. Electronically signed by: Shun Jacob On 09/07/2019 22:46:28 PM
[2019-09-07] MEDS ORDERED: BASA100I SC (23:28)
[2019-09-07] MEDS ORDERED: dexameTHASONE 20 MG/5 ML VIAL (J1100) IV ONE (23:30)
[2019-09-07] MEDS ORDERED: PRED20TA PO (23:34)
[2019-09-07 23:51] VITALS: BP 150/89
== END 2019-09-07 23:53 | disposition home or self-care (01) ==
LOC: M ED 22:32
DX: G51.9 Disorder of facial nerve, unspecified (principal); R29.810 Facial weakness; H53.8 Other visual disturbances; R47.81 Slurred speech; R20.2 Paresthesia of skin; I10 Essential (primary) hypertension; E78.00 Pure hypercholesterolemia, unspecified; E03.9 Hypothyroidism, unspecified; E11.9 Type 2 diabetes mellitus without complications; E78.5 Hyperlipidemia, unspecified; Z86.69 Personal history of other diseases of the nervous system and sense organs; Z79.4 Long term (current) use of insulin; Z79.82 Long term (current) use of aspirin; Z79.899 Other long term (current) drug therapy
CPT/HCPCS: 70450; 96374; 99284; J1100

== ENCOUNTER → 2019-11-17 | Outpatient (REF) | payer OTHER ==
[2019-11-17 21:52] LABS: INFLUENZA A AMPLIFICATION NEGATIVE (NEGATIVE); INFLUENZA B AMPLIFICATION POSITIVE (NEGATIVE)
== END ==
LOC: M LAB REF 11:56
PROVIDERS: ATTEND Physician Assistant
DX: R50.9 Fever, unspecified (principal); R05 Cough

== ENCOUNTER → 2019-12-17 | Outpatient (REF) | payer OTHER ==
[2019-12-17 11:33] LABS: BASO # 0.1 10^3/uL (0.0-0.2); BASO % 0.6 % (0.0-1.0); EOS # 0.2 10^3/uL (0.0-0.5); EOS % 2.7 % (0.0-3.0); HEMATOCRIT 42.5 % (36.0-47.0); HEMOGLOBIN 13.2 g/dl (12.0-15.5); LYMPH # 2.4 10^3/uL (1.5-5.0); LYMPH % 27.1 % (24.0-44.0); MEAN CORPUSCULAR HEMOGLOBIN 27.1 pg (27.0-33.0); MEAN CORPUSCULAR HGB CONC 31.1 g/dl (32.0-36.5); MEAN CORPUSCULAR VOLUME 87.3 fl (80.0-96.0); MONO # 0.5 10^3/uL (0.0-0.8); MONO % 5.7 % (0.0-5.0); NEUTROPHILS # 5.5 10^3/uL (1.5-8.5); NEUTROPHILS % 63.7 % (36.0-66.0); PLATELET COUNT, AUTOMATED 311 10^3/uL (150-450); RED BLOOD COUNT 4.87 10^6/uL (4.00-5.40); WHITE BLOOD COUNT 8.7 10^3/uL (4.0-10.0)
[2019-12-17 11:53] LABS: HEMOGLOBIN A1c 8.7 %
[2019-12-17 12:02] LABS: ALT/SGPT 16 U/L (12-78); BILIRUBIN,TOTAL 0.2 MG/DL (0.2-1.0); BLOOD UREA NITROGEN 18 MG/DL (7-18); CALCIUM LEVEL 9.2 MG/DL (8.5-10.1); CARBON DIOXIDE LEVEL 32 MEQ/L (21-32); CHLORIDE LEVEL 103 MEQ/L (98-107); CHOLESTEROL LEVEL 226 MG/DL (<200); CHOLESTEROL RISK RATIO 3.587 (<5); FREE T4 0.78 NG/DL (0.76-1.46); GLOMERULAR FILTRATION RATE > 60.0 (>58); GLUCOSE, FASTING 83 MG/DL (70-100); HDL CHOLESTEROL 63 MG/DL (>40); LDL CHOLESTEROL 140 MG/DL (<100); NON-HDL-C 163 MG/DL; POTASSIUM SERUM 3.6 MEQ/L (3.5-5.1); SODIUM LEVEL 140 MEQ/L (136-145); TOTAL PROTEIN 7.2 GM/DL (6.4-8.2); TRIGLYCERIDES LEVEL 115 MG/DL (<150)
[2019-12-17 12:05] LABS: TOTAL 25(OH) VITAMIN D 18.5 NG/ML (30.0-100.0)
== END ==
LOC: M LAB REF 11:01
PROVIDERS: ATTEND Nurse Practitioner Family
DX: I10 Essential (primary) hypertension (principal); E78.5 Hyperlipidemia, unspecified; E03.9 Hypothyroidism, unspecified; Z13.9 Encounter for screening, unspecified

== ENCOUNTER 2020-06-23 17:55 | Emergency (ER) | payer OTHER ==
[~2020-06-23 17:55] MED LIST changes: +CYCL-707 PO; -CYCL10TA PO
== END 2020-06-23 22:36 | disposition home or self-care (01) ==
LOC: M ED 17:55
DX: S50.01XA Contusion of right elbow, initial encounter (principal); W01.10XA Fall on same level from slipping, tripping and stumbling with subsequent striking against unspecified object, initial encounter; Y92.89 Other specified places as the place of occurrence of the external cause; Y93.9 Activity, unspecified; Y99.9 Unspecified external cause status; J45.909 Unspecified asthma, uncomplicated; E05.90 Thyrotoxicosis, unspecified without thyrotoxic crisis or storm; Z79.899 Other long term (current) drug therapy; Z79.82 Long term (current) use of aspirin; Z79.84 Long term (current) use of oral hypoglycemic drugs; Z88.6 Allergy status to analgesic agent

== ENCOUNTER 2020-10-01 01:32 | Emergency (ER) | payer OTHER ==
[~2020-10-01] VITALS: Ht 157.5 cm; Wt 137.8 kg
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
[2020-10-01 04:13] VITALS: BP 135/75
== END 2020-10-01 04:45 | disposition home or self-care (01) ==
LOC: M ED 01:32
DX: M25.561 Pain in right knee (principal); W22.8XXA Striking against or struck by other objects, initial encounter; Y92.099 Unspecified place in other non-institutional residence as the place of occurrence of the external cause; Y93.9 Activity, unspecified; Y99.9 Unspecified external cause status; Z79.4 Long term (current) use of insulin; Z79.82 Long term (current) use of aspirin; Z79.899 Other long term (current) drug therapy; Z88.6 Allergy status to analgesic agent

== ENCOUNTER → 2020-12-02 | Outpatient (REF) | payer OTHER ==
[~2020-12-02] MED LIST changes: +GABA-282 PO; -GABA-843 PO; -LISI-538 PO; +LISI10TA22 PO; -LISI10TA4 PO; +LISI20TA33 PO
[2020-12-02 13:21] LABS: BASO % 0.3 % (0.0-1.0); EOS # 0.2 10^3/uL (0.0-0.5); EOS % 2.1 % (0.0-3.0); HEMATOCRIT 42.5 % (36.0-47.0); LYMPH # 3.4 10^3/uL (1.5-5.0); LYMPH % 33.6 % (24.0-44.0); MEAN CORPUSCULAR HEMOGLOBIN 27.4 pg (27.0-33.0); MEAN CORPUSCULAR HGB CONC 30.6 g/dl (32.0-36.5); MEAN CORPUSCULAR VOLUME 89.7 fl (80.0-96.0); MONO # 0.6 10^3/uL (0.0-0.8); MONO % 6.2 % (0.0-5.0); NEUTROPHILS # 5.7 10^3/uL (1.5-8.5); NEUTROPHILS % 57.4 % (36.0-66.0); PLATELET COUNT, AUTOMATED 317 10^3/uL (150-450); RED BLOOD COUNT 4.74 10^6/uL (4.00-5.40)
[2020-12-02 13:56] LABS: ALT/SGPT 23 U/L (12-78); BILIRUBIN,TOTAL 0.3 MG/DL (0.2-1.0); BLOOD UREA NITROGEN 18 MG/DL (7-18); CALCIUM LEVEL 8.9 MG/DL (8.5-10.1); CARBON DIOXIDE LEVEL 33 MEQ/L (21-32); CHLORIDE LEVEL 104 MEQ/L (98-107); CHOLESTEROL LEVEL 218 MG/DL (<200); CHOLESTEROL RISK RATIO 3.353 (<5); CREATININE FOR GFR 0.69 MG/DL (0.55-1.30); FREE T4 0.65 NG/DL (0.76-1.46); GLOMERULAR FILTRATION RATE > 60.0 (>58); GLUCOSE, FASTING 67 MG/DL (70-100); HDL CHOLESTEROL 65 MG/DL (>40); IRON (FE) 33 UG/DL (50-170); LDL CHOLESTEROL 131 MG/DL (<100); NON-HDL-C 153 MG/DL; PERCENT SATURATION 8.4 % (13.2-45.0); POTASSIUM SERUM 3.8 MEQ/L (3.5-5.1); SODIUM LEVEL 139 MEQ/L (136-145); TOTAL 25(OH) VITAMIN D 19.3 NG/ML (30.0-100.0); TOTAL IRON BINDING CAPACITY 395 UG/DL (250-450); TOTAL PROTEIN 7.1 GM/DL (6.4-8.2); TRIGLYCERIDES LEVEL 108 MG/DL (<150); VITAMIN B12 LEVEL 494 PG/ML
== END ==
LOC: M LAB REF 12:16
PROVIDERS: ATTEND Nurse Practitioner Family
DX: E66.9 Obesity, unspecified (principal); G89.4 Chronic pain syndrome; E78.5 Hyperlipidemia, unspecified

== ENCOUNTER → 2021-03-16 | Outpatient (CLI) | payer OTHER ==
--- NOTE | 2021-03-16 20:07 | REP ---
INDICATION: LT KNEE PAIN ? LEGAMENT TEAR. COMPARISON: None TECHNIQUE: Sagittal spin-echo proton density, T2 STIR and T2 FLASH. Coronal spin-echo proton density and fat suppressed proton density. Axial fat suppressed proton density. FINDINGS: The anterior and posterior horns of the medial meniscus are within normal limits. The anterior and posterior horns of the lateral meniscus are within normal limits. The anterior and posterior cruciate ligaments are intact the quadriceps and patellar tendons are intact. The medial and lateral collateral ligaments are intact. The medial and lateral patellar retinacula are intact. There is a minimal joint effusion. There is thinning and irregularity of the cartilaginous surfaces of the patellofemoral groove and particularly affecting the trochlear groove of the femur. There is advanced thinning and irregularity of the medial femoral condylar articular cartilage. This is seen with a small cartilaginous flap. There is minimal medial and lateral compartmental marginal osteophytosis. There is no Myles's cyst. The marrow signal is within normal limits. IMPRESSION: 1. 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 2. There is a minimal joint effusion. 3. There is no evidence of internal derangement. <Electronically signed by Wisam Atkinson > 03/[id number]/[id number]
== END ==
LOC: M RAD 18:11
PROVIDERS: ATTEND Orthopaedic Surgery
DX: M25.562 Pain in left knee (principal); M94.262 Chondromalacia, left knee; M25.462 Effusion, left knee

== ENCOUNTER 2021-09-17 18:54 | Emergency (ER) | payer OTHER ==
[~2021-09-17] VITALS: Ht 157.5 cm; Wt 131.8 kg
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
[2021-09-17 20:32] VITALS: BP 169/92
--- OUTSIDE RECORDS SUMMARY | 2021-09-17 20:51 | CCD ---
Author Author [facility] Organization [facility] Address Unknown Phone Unavailable Care Team Providers Care Fur Joiner Name Role Phone Pee Ballard MD Unavailable Unavailable Pee Ballard MD Unavailable Unavailable Pee Ballard MD Unavailable Unavailable Pee Ballard MD Unavailable Unavailable Pee Ballard MD Unavailable Unavailable Pee Ballard MD Unavailable Unavailable Pee Ballard MD Unavailable Unavailable Pee Ballard MD Unavailable Unavailable Pee Ballard MD Unavailable Unavailable Pee Ballard MD Unavailable Unavailable Pee Ballard MD Unavailable Unavailable Rodrigue, Taylor MARSHMALLOW MACHINE OPERATOR MARSHMALLOW MACHINE OPERATOR Unavailable Unavailable Rodrigue, A Taylor MARSHMALLOW MACHINE OPERATOR Unavailable Unavailable Rodrigue, A Taylor MARSHMALLOW MACHINE OPERATOR Unavailable Unavailable Rodrigue, A Taylor MARSHMALLOW MACHINE OPERATOR Unavailable Unavailable Rodrigue, A Taylor MARSHMALLOW MACHINE OPERATOR Unavailable Unavailable Rodrigue, A Taylor MARSHMALLOW MACHINE OPERATOR Unavailable Unavailable Rodrigue, A Taylor MARSHMALLOW MACHINE OPERATOR Unavailable Unavailable Rodrigue, A Taylor MARSHMALLOW MACHINE OPERATOR Unavailable Unavailable Rodrigue, A Taylor MARSHMALLOW MACHINE OPERATOR Unavailable Unavailable Rodrigue, A Taylor MARSHMALLOW MACHINE OPERATOR Unavailable Unavailable Rodrigue, A Taylor MARSHMALLOW MACHINE OPERATOR Unavailable Unavailable Rodrigue, A Taylor MARSHMALLOW MACHINE OPERATOR Unavailable Unavailable Rodrigue, A Taylor MARSHMALLOW MACHINE OPERATOR Unavailable Unavailable Rodrigue, A Taylor MARSHMALLOW MACHINE OPERATOR Unavailable Unavailable Rodrigue, A Taylor MARSHMALLOW MACHINE OPERATOR Unavailable Unavailable Rodrigue, A Taylor MARSHMALLOW MACHINE OPERATOR Unavailable Unavailable Rodrigue, A Taylor MARSHMALLOW MACHINE OPERATOR Unavailable Unavailable Rodrigue, A Taylor MARSHMALLOW MACHINE OPERATOR Unavailable Unavailable Rodrigue, A Taylor MARSHMALLOW MACHINE OPERATOR Unavailable Unavailable Rodrigue, A Taylor MARSHMALLOW MACHINE OPERATOR Unavailable Unavailable Rodrigue, A Taylor MARSHMALLOW MACHINE OPERATOR Unavailable Unavailable Rodrigue, A Taylor MARSHMALLOW MACHINE OPERATOR Unavailable Unavailable Rodrigue, A Taylor MARSHMALLOW MACHINE OPERATOR Unavailable Unavailable Rodrigue, A Taylor MARSHMALLOW MACHINE OPERATOR Unavailable Unavailable Rodrigue, A Taylor MARSHMALLOW MACHINE OPERATOR Unavailable Unavailable Rodrigue, A Taylor MARSHMALLOW MACHINE OPERATOR Unavailable Unavailable Rodrigue, A Taylor MARSHMALLOW MACHINE OPERATOR Unavailable Unavailable Rodrigue, A Taylor MARSHMALLOW MACHINE OPERATOR Unavailable Unavailable Rodrigue, A Taylor MARSHMALLOW MACHINE OPERATOR Unavailable Unavailable Rodrigue, A Taylor MARSHMALLOW MACHINE OPERATOR Unavailable Unavailable Rodrigue, A Taylor MARSHMALLOW MACHINE OPERATOR Unavailable Unavailable Rodrigue, A Taylor MARSHMALLOW MACHINE OPERATOR Unavailable Unavailable SERVIN, G EDWARD RPA Unavailable Unavailable SERVIN, G EDWARD RPA Unavailable Unavailable SERVIN, G EDWARD RPA Unavailable Unavailable SERVIN, G EDWARD RPA Unavailable Unavailable SERVIN, G EDWARD RPA Unavailable Unavailable SERVIN, G EDWARD RPA Unavailable Unavailable SERVIN, G EDWARD RPA Unavailable Unavailable SERVIN, G EDWARD RPA Unavailable Unavailable SERVIN, G EDWARD RPA Unavailable Unavailable SERVIN, G EDWARD RPA Unavailable Unavailable SERVIN, G EDWARD RPA Unavailable Unavailable SERVIN, G EDWARD RPA Unavailable Unavailable SERVIN, G EDWARD RPA Unavailable Unavailable SERVIN, G EDWARD RPA Unavailable Unavailable SERVIN, G EDWARD RPA Unavailable Unavailable SERVIN, G EDWARD RPA Unavailable Unavailable SERVIN, G EDWARD RPA Unavailable Unavailable SERVIN, G EDWARD RPA Unavailable Unavailable SERVIN, G EDWARD RPA Unavailable Unavailable SERVIN, G EDWARD RPA Unavailable Unavailable SERVIN, G EDWARD RPA Unavailable Unavailable SERVIN, G EDWARD RPA Unavailable Unavailable SERVIN, G EDWARD RPA Unavailable Unavailable SERVIN, G EDWARD RPA Unavailable Unavailable SERVIN, G EDWARD RPA Unavailable Unavailable SERVIN, G EDWARD RPA Unavailable Unavailable SERVIN, G EDWARD RPA Unavailable Unavailable SERVIN, G EDWARD RPA Unavailable Unavailable SERVIN, G EDWARD RPA Unavailable Unavailable SERVIN, G EDWARD RPA Unavailable Unavailable SERVIN, G EDWARD RPA Unavailable Unavailable SERVIN, G EDWARD RPA Unavailable Unavailable SERVIN, G EDWARD RPA Unavailable Unavailable SERVIN, G EDWARD RPA Unavailable Unavailable SERVIN, G EDWARD RPA Unavailable Unavailable SERVIN, G EDWARD RPA Unavailable Unavailable SERVIN, G EDWARD RPA Unavailable Unavailable Dallin Marin MD Unavailable Unavailable Dallin Marin MD Unavailable Unavailable Dallin Marin MD Unavailable Unavailable Dallin Marin MD Unavailable Unavailable Dallin Marin MD Unavailable Unavailable Dallin Marin MD Unavailable Unavailable Dallin Marin MD Unavailable Unavailable Dallin Marin MD Unavailable Unavailable Dallin Marin MD Unavailable Unavailable Dallin Marin MD Unavailable Unavailable Dallin Marin MD Unavailable Unavailable Dallin Marin MD Unavailable Unavailable Dallin Marin MD Unavailable Unavailable Dallin Marin MD Unavailable Unavailable Dallin Marin MD Unavailable Unavailable Dallin Marin MD Unavailable Unavailable Dallin Marin MD Unavailable Unavailable Dallin Marin MD Unavailable Unavailable Dallin Marin MD Unavailable Unavailable Dallin Marin MD Unavailable Unavailable Dallin Marin MD Unavailable Unavailable Dallin Marin MD Unavailable Unavailable Dallin Marin MD Unavailable Unavailable Dallin Marin MD Unavailable Unavailable Dallin Marin MD Unavailable Unavailable Re-disclosure Warning The records that you are about to access may contain information from federally-assisted alcohol or drug abuse programs. If such information is present, then the following federally mandated warning applies: This information has been disclosed to you from records protected by federal confidentiality rules (42 CFR part 2). The federal rules prohibit you from making any further disclosure of this information unless further disclosure is expressly permitted by the written consent of the person to whom it pertains or as otherwise permitted by 42 CFR part 2. A general authorization for the release of medical or other information is NOT sufficient for this purpose. The Federal rules restrict any use of the information to criminally investigate or prosecute any alcohol or drug abuse patient.The records that you are about to access may contain highly sensitive health information, the redisclosure of which is protected by Article 27-F of the [facility] Public Health law. If you continue you may have access to information: Regarding HIV / AIDS; Provided by facilities licensed or operated by the [facility] Office of Mental Health; or Provided by the [facility] Office for People With Developmental Disabilities. If such information is present, then the following [facility] mandated warning applies: This information has been disclosed to you from confidential records which are protected by state law. State law prohibits you from making any further disclosure of this information without the specific written consent of the person to whom it pertains, or as otherwise permitted by law. Any unauthorized further disclosure in violation of state law may result in a fine or intermediate sentence or both. A general authorization for the release of medical or other information is NOT sufficient authorization for further disc losure. Encounters Encounter Providers Location Date Indications Data Source(s ) Outpatient Attender: Carina Marin MD 1 07:05:17 PM EDT - 09/05/2021 08:58:04 PM EDT [facility] ([facility]) Outpatient Attender: LAURA SERVIN [facility] 04/10 06:49:45 PM EDT - 04/10/2021 07:37:22 PM EDT [facility] ([facility] ) OFFICE OUTPATIENT VISIT 15 MINUTES Attender: Ronny Ballard MD P hysical Therapy 03/25/2021 08:30:00 AM EDT [facility] ([facility]) Outpatient Attender: Ronny Ballard MD Physical Therapy 04/2021 01:30:00 PM EDT [facility] ([facility]) ESTEFANY Marshall: [address], [place] [address], Ph. Attender: Taylor Husain [facility] Medical 02/08/2021 12:00:00 AM EDT [facility] ([facility]) HANNAH Marshall: [address], [place] [address], Ph. Attender: Taylor Husain [facility] Medical 12/02/2020 12:00:00 AM EST [facility] ([facility]) HANNAH Marshall: [address] [place] [address], Ph. Attender: Taylor Husain [facility] Medical 12/02/2020 12:00:00 AM EST [facility] ([facility]) Taylor Husain [facility]: [address], [place] [address], Ph. Attender: Taylor Husain [facility] Medical 12/02/2020 12:00:00 AM EST [facility] ([facility]) Taylor Husain [facility]: [address], [place] [address], Ph. Attender: Taylor Husain [facility] Medical 12/02/2020 12:00:00 AM EST [facility] ([facility]) Taylor Husain [facility]: [address], [place] [address], Ph. Attender: Taylor Husain [facility] Medical 12/02/2020 12:00:00 AM EST DRAREN ([facility]) Taylor Husain [facility]: [address], [place] [address], Ph. Attender: Taylor Husain [facility] Medical 12/02/2020 12:00:00 AM EST [facility] ([facility]) Taylor Husain [facility]: [address], [place] [address], Ph. Attender: Taylor Husain [facility] Medical 12/01/2020 12:00:00 AM EST [facility] ([facility]) Taylor Husain [facility]: [address], [place] [address], Ph. [facility] 12:00:00 AM YARELIS BANKS ([facility]) Taylor Husain [facility]-: [address] [facility] [address], Ph. Attender: Taylor Husain [facility] 12/01/2020 12:00:00 AM YARELIS BANKS ([facility]) Outpatient Attender: RAMÓN Husain [facility] 07/30/2020 12:02:26 A M EDT [facility] Outpatient Attender: RAMÓN Husain [facility] 07/29/2020 05:30:00 P M EDT [facility] Medications Medication Brand Name Start Date Product Form Dose Route Admi nistrative Instructions Pharmacy Instructions Status Indications Reaction Description Data Source(s) BLOOD SUGAR DIAGNOSTIC 09/08/2021 12:00:00 AM EDT strip 200 USE TO TEST SUGAR UP TO THREE TIMES A DAY USE TO TEST SUGAR UP TO THREE TIMES A DAY SOLD: 09/08/2021 [facility] 3 ML Insulin Glargine 100 UNT/ML Pen Injector [Basagla r] 100 unit/mL (3 mL) INSULIN GLARGINE,[email or web address] 09/08/2021 12:00:00 AM EDT insulin pen 30 INJECT 100 UNITS UNDER SKIN ONCE A DAY INJECT 100 UNITS UNDER SKIN ONCE A DAY SOLD: 09/08/2021 [facility] 15 mg 09/08/2021 12:00:00 AM EDT tablet 30 TAKE ONE TABLET BY MOUTH DAILY NEEDED TAKE ONE TABLET BY MOUTH DAILY NEEDED SOLD: 09/08/2021 [facility] 100 mcg 09/08/2021 12:00:00 AM EDT tablet 30 TAKE ONE TABLET BY MOUTH EVERY DAY TAKE ONE TABLET BY MOUTH EVERY DAY SOLD: 09/08/2021 [facility] 90 mcg/actuation 09/06/2021 12:00:00 AM EDT HFA aerosol inha ler 8 INHALE 1-2 PUFFS BY MOUTH EVERY 4 HOURS NEEDED FOR WHEEZING INHALE 1-2 PUFFS BY MOUTH EVERY 4 HOURS NEEDED FOR WHEEZING SOLD: 09/06/2021 [facility] 10 mg 09/06/2021 12:00:00 AM EDT tablet 30 TAKE ONE TABLET BY MOUTH EVERY DAY TAKE ONE TABLET BY MOUTH EVERY DAY SOLD: 09/06/2021 [facility] 30 mg/5 mL 09/06/2021 12:00:00 AM EDT suspension,extended re l 12 hr 100 GIVE 5ML BY MOUTH EVERY 12 HOURS FOR 10 DAYS GIVE 5ML BY MOUTH EVERY 12 HOURS FOR 10 DAYS SOLD: 09/06/2021 [facility] Fluticasone propionate 0.05 MG/ACTUAT Metered Dose [facility] 50 mcg/actuation FLUTICASONE PROPIONATE 09/06/2021 12:00:00 AM EDT spray,suspension 16 SPRAY 2 SPRAYS IN EACH NOSTRIL ONCE DAILY SPRAY 2 SPRAYS IN EACH NOSTRIL ONCE DAILY SOLD: 09/06/2021 [facility] 20 mg 09/06/2021 12:00:00 AM EDT tablet 10 TAKE ONE TABLET BY MOUTH TWICE A DAY FOR 5 DAYS TAKE ONE TABLET BY MOUTH TWICE A DAY FOR 5 DAYS SOLD: 2020 [facility] 100 unit/mL (3 mL) 09/03/2021 12:00:00 AM EDT insulin pen 30 INJECT THREE TIMES A DAY PER SLIDING SCALE MAXIMUM DAILY DOSE = 40 UNITS INJECT THREE TIMES A DAY PER SLIDING SCALE MAXIMUM DAILY DOSE = 40 UNITS SOLD: 09/05/2021 [facility] 15 mg 08/10/2021 12:00:00 AM EDT tablet 30 TAKE ONE TABLET BY MOUTH DAILY NEEDED TAKE ONE TABLET BY MOUTH DAILY NEEDED SOLD: 08/10/2021 [facility] benzonatate 100 MG Oral Capsule BENZONATATE 04/11/2021 12:00:00 AM EDT capsule 60 TAKE TWO CAPSULES BY MOUTH THREE TIMES A DAY FOR 10 DAYS TAKE TWO CAPSULES BY MOUTH THREE TIMES A DAY FOR 10 DAYS SOLD: 04/11/2021 [facility] 6 mg 04/11/2021 12:00:00 AM EDT tablet 7 TAKE ONE TABLET BY MOUTH EVERY DAY FOR 7 DAYS TAKE ONE TABLET BY MOUTH EVERY DAY FOR 7 DAYS SOLD: 04/11/2021 [facility] 500 mg 04/11/2021 12:00:00 AM EDT tablet 3 TAKE ONE TABLET BY MOUTH EVERY DAY FOR 3 DAYS TAKE ONE TABLET BY MOUTH EVERY DAY FOR 3 DAYS SOLD: 04/11/2021 [facility] Cyclobenzaprine hydrochloride 10 MG Oral Tablet CYCLOBENZAPR INE HCL 03/23/2021 12:00:00 AM EDT tablet 30 TAKE ONE TABLET BY MOUTH EVERY EVENING NEEDED TAKE ONE TABLET BY MOUTH EVERY EVENING NEEDED SOLD: 05/12/2021 [facility] Cyclobenzaprine hydrochloride 10 MG Oral Tablet CYCLOBENZAPR INE HCL 03/23/2021 12:00:00 AM EDT tablet 30 TAKE ONE TABLET BY MOUTH EVERY EVENING NEEDED TAKE ONE TABLET BY MOUTH EVERY EVENING NEEDED SOLD: 03/23/2021 [facility] Cyclobenzaprine hydrochloride 10 MG Oral Tablet CYCLOBENZAPR INE HCL 03/23/2021 12:00:00 AM EDT tablet 30 TAKE ONE TABLET BY MOUTH EVERY EVENING NEEDED TAKE ONE TABLET BY MOUTH EVERY EVENING NEEDED SOLD: 08/10/2021 [facility] Cyclobenzaprine hydrochloride 10 MG Oral Tablet CYCLOBENZAPR INE HCL 03/23/2021 12:00:00 AM EDT tablet 30 TAKE ONE TABLET BY MOUTH EVERY EVENING NEEDED TAKE ONE TABLET BY MOUTH EVERY EVENING NEEDED SOLD: 07/09/2021 [facility] 50 mg 02/16/2021 12:00:00 AM EDT tablet 60 TAKE ONE TABLET BY MOUTH EVERY 4 TO 6 HOURS NEEDED FOR PAIN, MAXIMUM DAILY DOSE = SIX TABLETS TAKE ONE TABLET BY MOUTH EVERY 4 TO 6 HOURS NEEDED FOR PAIN, MAXIMUM DAILY DOSE = SIX TABLETS SOLD: 03/02/2021 [facility] 50 mg 02/16/2021 12:00:00 AM EDT tablet 18 TAKE ONE TABLET BY MOUTH EVERY 4 TO 6 HOURS NEEDED FOR PAIN, MAXIMUM DAILY DOSE = SIX TABLETS TAKE ONE TABLET BY MOUTH EVERY 4 TO 6 HOURS NEEDED FOR PAIN, MAXIMUM DAILY DOSE = SIX TABLETS SOLD: 04/05/2021 [facility] tramadol hydrochloride 50 MG Oral Tablet Tramadol HCL 02/16/2021 12:00:00 AM EDT active [facility] ([facility] ) 50 mg 02/16/2021 12:00:00 AM EDT tablet 42 TAKE ONE TABLET BY MOUTH EVERY 4 TO 6 HOURS NEEDED FOR PAIN, MAXIMUM DAILY DOSE = SIX TABLETS TAKE ONE TABLET BY MOUTH EVERY 4 TO 6 HOURS NEEDED FOR PAIN, MAXIMUM DAILY DOSE = SIX TABLETS SOLD: 02/16/2021 [facility] 90 mcg/actuation 02/08/2021 12:00:00 AM EDT HFA aerosol inha ler 18 INHALE TWO PUFFS BY MOUTH EVERY 4 HOURS NEEDED FOR SHORTNESS OF BREATH INHALE TWO PUFFS BY MOUTH EVERY 4 HOURS NEEDED FOR SHORTNESS OF BREATH SOLD: 05/12/2021 [facility] BLOOD SUGAR DIAGNOSTIC 02/08/2021 12:00:00 AM EDT strip 100 USE TO TEST BLOOD GLUCOSE THREE TIMES A DAY USE TO TEST BLOOD GLUCOSE THREE TIMES A DAY SOLD: 03/14/2021 [facility] Cyclobenzaprine hydrochloride 10 MG Oral Tablet CYCLOBENZAPR INE HCL 02/08/2021 12:00:00 AM EDT tablet 30 TAKE ONE TABLET BY MOUTH EVERY EVENING NEEDED TAKE ONE TABLET BY MOUTH EVERY EVENING NEEDED SOLD: 02/08/2021 [facility] 20 mg 02/08/2021 12:00:00 AM EDT tablet 30 TAKE ONE TABLET BY MOUTH EVERY DAY TAKE ONE TABLET BY MOUTH EVERY DAY SOLD: 08/02/2021 [facility] 1,000 mg 02/08/2021 12:00:00 AM EDT tablet 60 TAKE ONE TABLET BY MOUTH TWICE A DAY TAKE ONE TABLET BY MOUTH TWICE A DAY SOLD: 04/11/2021 [facility] 10 mg 02/08/2021 12:00:00 AM EDT tablet extended release 24hr 30 TAKE ONE TABLET BY MOUTH EVERY DAY TAKE ONE TABLET BY MOUTH EVERY DAY SOLD: 04/11/2021 [facility] 15 mg 02/08/2021 12:00:00 AM EDT tablet 30 TAKE ONE TABLET BY MOUTH EVERY DAY NEEDED TAKE ONE TABLET BY MOUTH EVERY DAY NEEDED SOLD: 05/12/2021 [facility] 3 ML Insulin Glargine 100 UNT/ML Pen Injector [Basagla r] 100 unit/mL (3 mL) INSULIN GLARGINE,[email or web address] 02/08/2021 12:00:00 AM EDT insulin pen 30 INJECT 100 UNITS UNDER THE SKIN ONCE DAILY INJECT 100 UNITS UNDER THE SKIN ONCE DAILY SOLD: 06/17/2021 [facility] 31 gauge x 3/16" 02/08/2021 12:00:00 AM EDT needle 100 USE DIRECTED TO ADMINISTER INSULIN FOUR TIMES A DAY USE DIRECTED TO ADMINISTER INSULIN FO UR TIMES A DAY SOLD: 02/08/2021 [facility] 100 unit/mL (3 mL) 02/08/2021 12:00:00 AM EDT insulin pen 30 INJECT 100 UNITS UNDER THE SKIN ONCE DAILY INJECT 100 UNITS UNDER THE SKIN ONCE DAILY SOLD: 02/08/2021 [facility] Metformin hydrochloride 1000 MG Oral Tablet 1,000 mg METFORM IN HCL 02/08/2021 12:00:00 AM EDT tablet 60 TAKE ONE TABLET BY MOUTH TWICE A DAY TAKE ONE TABLET BY MOUTH TWICE A DAY SOLD: 02/08/2021 [facility] 81 mg 02/08/2021 12:00:00 AM EDT tablet,delayed release (DR/EC) 30 TAKE ONE TABLET BY MOUTH EVERY DAY DIRECTED TAKE ONE TABLET BY MOUTH EVERY DAY DIRECTED SOLD: 03/14/2021 [facility] 33 gauge 02/08/2021 12:00:00 AM EDT misc 100 USE DIRECTED TO CHECK BLOOD GLUCOSE 3-4 TIMES DAILY USE DIRECTED TO CHECK BLOOD GLUCOSE 3-4 TIMES DAILY SOLD: 03/14/2021 [facility] 1,000 mg 02/08/2021 12:00:00 AM EDT tablet 60 TAKE ONE TABLET BY MOUTH TWICE A DAY TAKE ONE TABLET BY MOUTH TWICE A DAY SOLD: 03/14/2021 [facility] 20 mg 02/08/2021 12:00:00 AM EDT tablet 30 TAKE ONE TABLET BY MOUTH EVERY DAY TAKE ONE TABLET BY MOUTH EVERY DAY SOLD: 05/12/2021 [facility] 1,000 mg 02/08/2021 12:00:00 AM EDT tablet 60 TAKE ONE TABLET BY MOUTH TWICE A DAY TAKE ONE TABLET BY MOUTH TWICE A DAY SOLD: 08/10/2021 [facility] 33 gauge 02/08/2021 12:00:00 AM EDT misc 100 USE DIRECTED TO CHECK BLOOD GLUCOSE 3-4 TIMES DAILY USE DIRECTED TO CHECK BLOOD GLUCOSE 3-4 TIMES DAILY SOLD: 02/08/2021 [facility] 100 unit/mL 02/08/2021 12:00:00 AM EDT insulin pen 15 INJECT PER SLIDING SCALE THREE TIMES A DAY WITH MEALS MAXIMUM DAILY DOSE = 40 UNITS *37 DAY SUPPLY* INJECT PER SLIDING SCALE THREE TIMES A D AY WITH MEALS MAXIMUM DAILY DOSE = 40 UNITS *37 DAY SUPPLY* SOLD: 06/17/2021 [facility] BLOOD SUGAR DIAGNOSTIC 02/08/2021 12:00:00 AM EDT strip 100 USE TO TEST BLOOD GLUCOSE THREE TIMES A DAY USE TO TEST BLOOD GLUCOSE THREE TIMES A DAY SOLD: 06/17/2021 [facility] 100 unit/mL 02/08/2021 12:00:00 AM EDT insulin pen 15 INJECT PER SLIDING SCALE THREE TIMES A DAY WITH MEALS MAXIMUM DAILY DOSE = 40 UNITS *37 DAY SUPPLY* INJECT PER SLIDING SCALE THREE TIMES A D AY WITH MEALS MAXIMUM DAILY DOSE = 40 UNITS *37 DAY SUPPLY* SOLD: 02/08/2021 [facility] BLOOD SUGAR DIAGNOSTIC 02/08/2021 12:00:00 AM EDT strip 100 USE TO TEST BLOOD GLUCOSE THREE TIMES A DAY USE TO TEST BLOOD GLUCOSE THREE TIMES A DAY SOLD: 02/08/2021 [facility] BLOOD SUGAR DIAGNOSTIC 02/08/2021 12:00:00 AM EDT strip 100 USE TO TEST BLOOD GLUCOSE THREE TIMES A DAY USE TO TEST BLOOD GLUCOSE THREE TIMES A DAY SOLD: 04/11/2021 [facility] 31 gauge x 3/16" 02/08/2021 12:00:00 AM EDT needle 100 USE DIRECTED TO ADMINISTER INSULIN FOUR TIMES A DAY USE DIRECTED TO ADMINISTER INSULIN FO UR TIMES A DAY SOLD: 03/14/2021 [facility] 10 mg 02/08/2021 12:00:00 AM EDT tablet extended release 24hr 30 TAKE ONE TABLET BY MOUTH EVERY DAY TAKE ONE TABLET BY MOUTH EVERY DAY SOLD: 05/12/2021 [facility] 15 mg 02/08/2021 12:00:00 AM EDT tablet 30 TAKE ONE TABLET BY MOUTH EVERY DAY NEEDED TAKE ONE TABLET BY MOUTH EVERY DAY NEEDED SOLD: 04/11/2021 [facility] 90 mcg/actuation 02/08/2021 12:00:00 AM EDT HFA aerosol inha ler 18 INHALE TWO PUFFS BY MOUTH EVERY 4 HOURS NEEDED FOR SHORTNESS OF BREATH INHALE TWO PUFFS BY MOUTH EVERY 4 HOURS NEEDED FOR SHORTNESS OF BREATH SOLD: 02/08/2021 [facility] 100 unit/mL 02/08/2021 12:00:00 AM EDT insulin pen 15 INJECT PER SLIDING SCALE THREE TIMES A DAY WITH MEALS MAXIMUM DAILY DOSE = 40 UNITS *37 DAY SUPPLY* INJECT PER SLIDING SCALE THREE TIMES A D AY WITH MEALS MAXIMUM DAILY DOSE = 40 UNITS *37 DAY SUPPLY* SOLD: 03/14/2021 [facility] 10 mg 02/08/2021 12:00:00 AM EDT tablet 30 TAKE ONE TABLET BY MOUTH EVERY DAY TAKE ONE TABLET BY MOUTH EVERY DAY SOLD: 04/05/2021 [facility] 81 mg 02/08/2021 12:00:00 AM EDT tablet,delayed release (DR/EC) 30 TAKE ONE TABLET BY MOUTH EVERY DAY DIRECTED TAKE ONE TABLET BY MOUTH EVERY DAY DIRECTED SOLD: 02/08/2021 [facility] 81 mg 02/08/2021 12:00:00 AM EDT tablet,delayed release (DR/EC) 30 TAKE ONE TABLET BY MOUTH EVERY DAY DIRECTED TAKE ONE TABLET BY MOUTH EVERY DAY DIRECTED SOLD: 06/17/2021 [facility] 31 gauge x 3/16" 02/08/2021 12:00:00 AM EDT needle 100 USE DIRECTED TO ADMINISTER INSULIN FOUR TIMES A DAY USE DIRECTED TO ADMINISTER INSULIN FO UR TIMES A DAY SOLD: 06/17/2021 [facility] 20 mg 02/08/2021 12:00:00 AM EDT tablet 30 TAKE ONE TABLET BY MOUTH EVERY DAY TAKE ONE TABLET BY MOUTH EVERY DAY SOLD: 06/17/2021 [facility] 3 ML Insulin Glargine 100 UNT/ML Pen Injector [Basagla r] 100 unit/mL (3 mL) INSULIN GLARGINE,[email or web address] 02/08/2021 12:00:00 AM EDT insulin pen 30 INJECT 100 UNITS UNDER THE SKIN ONCE DAILY INJECT 100 UNITS UNDER THE SKIN ONCE DAILY SOLD: 05/12/2021 [facility] 20 mg 02/08/2021 12:00:00 AM EDT tablet 30 TAKE ONE TABLET BY MOUTH EVERY DAY TAKE ONE TABLET BY MOUTH EVERY DAY SOLD: 02/08/2021 [facility] 10 mg 02/08/2021 12:00:00 AM EDT tablet extended release 24hr 30 TAKE ONE TABLET BY MOUTH EVERY DAY TAKE ONE TABLET BY MOUTH EVERY DAY SOLD: 08/10/2021 [facility] 10 mg 02/08/2021 12:00:00 AM EDT tablet 30 TAKE ONE TABLET BY MOUTH EVERY DAY TAKE ONE TABLET BY MOUTH EVERY DAY SOLD: 05/12/2021 [facility] BLOOD SUGAR DIAGNOSTIC 02/08/2021 12:00:00 AM EDT strip 100 USE TO TEST BLOOD GLUCOSE THREE TIMES A DAY USE TO TEST BLOOD GLUCOSE THREE TIMES A DAY SOLD: 05/12/2021 [facility] 90 mcg/actuation 02/08/2021 12:00:00 AM EDT HFA aerosol inha ler 18 INHALE TWO PUFFS BY MOUTH EVERY 4 HOURS NEEDED FOR SHORTNESS OF BREATH INHALE TWO PUFFS BY MOUTH EVERY 4 HOURS NEEDED FOR SHORTNESS OF BREATH SOLD: 03/14/2021 [facility] 31 gauge x 3/16" 02/08/2021 12:00:00 AM EDT needle 100 USE DIRECTED TO ADMINISTER INSULIN FOUR TIMES A DAY USE DIRECTED TO ADMINISTER INSULIN FO UR TIMES A DAY SOLD: 04/11/2021 [facility] 15 mg 02/08/2021 12:00:00 AM EDT tablet 30 TAKE ONE TABLET BY MOUTH EVERY DAY NEEDED TAKE ONE TABLET BY MOUTH EVERY DAY NEEDED SOLD: 03/14/2021 [facility] 31 gauge x 3/16" 02/08/2021 12:00:00 AM EDT needle 100 USE DIRECTED TO ADMINISTER INSULIN FOUR TIMES A DAY USE DIRECTED TO ADMINISTER INSULIN FO UR TIMES A DAY SOLD: 08/10/2021 [facility] 81 mg 02/08/2021 12:00:00 AM EDT tablet,delayed release (DR/EC) 30 TAKE ONE TABLET BY MOUTH EVERY DAY DIRECTED TAKE ONE TABLET BY MOUTH EVERY DAY DIRECTED SOLD: 05/12/2021 [facility] 100 unit/mL 02/08/2021 12:00:00 AM EDT insulin pen 15 INJECT PER SLIDING SCALE THREE TIMES A DAY WITH MEALS MAXIMUM DAILY DOSE = 40 UNITS *37 DAY SUPPLY* INJECT PER SLIDING SCALE THREE TIMES A D AY WITH MEALS MAXIMUM DAILY DOSE = 40 UNITS *37 DAY SUPPLY* SOLD: 04/18/2021 [facility] 3 ML Insulin Glargine 100 UNT/ML Pen Injector [Basagla r] 100 unit/mL (3 mL) INSULIN GLARGINE,[email or web address] 02/08/2021 12:00:00 AM EDT insulin pen 30 INJECT 100 UNITS UNDER THE SKIN ONCE DAILY INJECT 100 UNITS UNDER THE SKIN ONCE DAILY SOLD: 04/11/2021 [facility] 1,000 mg 02/08/2021 12:00:00 AM EDT tablet 60 TAKE ONE TABLET BY MOUTH TWICE A DAY TAKE ONE TABLET BY MOUTH TWICE A DAY SOLD: 06/17/2021 [facility] 20 mg 02/08/2021 12:00:00 AM EDT tablet 30 TAKE ONE TABLET BY MOUTH EVERY DAY TAKE ONE TABLET BY MOUTH EVERY DAY SOLD: 03/14/2021 [facility] 15 mg 02/08/2021 12:00:00 AM EDT tablet 30 TAKE ONE TABLET BY MOUTH EVERY DAY NEEDED TAKE ONE TABLET BY MOUTH EVERY DAY NEEDED SOLD: 02/08/2021 [facility] 10 mg 02/08/2021 12:00:00 AM EDT tablet extended release 24hr 30 TAKE ONE TABLET BY MOUTH EVERY DAY TAKE ONE TABLET BY MOUTH EVERY DAY SOLD: 03/14/2021 [facility] 10 mg 02/08/2021 12:00:00 AM EDT tablet 30 TAKE ONE TABLET BY MOUTH EVERY DAY TAKE ONE TABLET BY MOUTH EVERY DAY SOLD: 06/17/2021 [facility] 90 mcg/actuation 02/08/2021 12:00:00 AM EDT HFA aerosol inha ler 18 INHALE TWO PUFFS BY MOUTH EVERY 4 HOURS NEEDED FOR SHORTNESS OF BREATH INHALE TWO PUFFS BY MOUTH EVERY 4 HOURS NEEDED FOR SHORTNESS OF BREATH SOLD: 04/11/2021 [facility] 10 mg 02/08/2021 12:00:00 AM EDT tablet 30 TAKE ONE TABLET BY MOUTH EVERY DAY TAKE ONE TABLET BY MOUTH EVERY DAY SOLD: 02/08/2021 [facility] 1,000 mg 02/08/2021 12:00:00 AM EDT tablet 60 TAKE ONE TABLET BY MOUTH TWICE A DAY TAKE ONE TABLET BY MOUTH TWICE A DAY SOLD: 05/12/2021 [facility] 31 gauge x 3/16" 02/08/2021 12:00:00 AM EDT needle 100 USE DIRECTED TO ADMINISTER INSULIN FOUR

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
[2021-09-17] MEDS ORDERED: PERCOCET 5MG/325MG TAB PO ONE (21:10)
[2021-09-17] MEDS ORDERED: METH-1165 PO (21:40)
[2021-09-17 22:15] VITALS: BP 160/90
== END 2021-09-17 22:16 | disposition home or self-care (01) ==
LOC: EDBD 18:54 → M ED 18:54
DX: S16.1XXA Strain of muscle, fascia and tendon at neck level, initial encounter (principal); S29.011A Strain of muscle and tendon of front wall of thorax, initial encounter; V43.52XA Car driver injured in collision with other type car in traffic accident, initial encounter; Y92.9 Unspecified place or not applicable; Y93.9 Activity, unspecified; Y99.9 Unspecified external cause status; R91.8 Other nonspecific abnormal finding of lung field; E11.9 Type 2 diabetes mellitus without complications; I10 Essential (primary) hypertension; E78.5 Hyperlipidemia, unspecified; J45.909 Unspecified asthma, uncomplicated; M54.50 Low back pain, unspecified; Z79.4 Long term (current) use of insulin; Z79.82 Long term (current) use of aspirin; Z79.899 Other long term (current) drug therapy; Z88.6 Allergy status to analgesic agent

== ENCOUNTER 2022-07-27 23:30 | Emergency (ER) | payer OTHER ==
[~2022-07-27] VITALS: Ht 157.5 cm; Wt 148.7 kg
[~2022-07-27 23:30] MED LIST changes: +METH-1165 PO
[2022-07-27] MEDS ORDERED: INSU100I16 SC (23:42)
[2022-07-27] MEDS ORDERED: ROSU10TA6 PO (23:42)
[2022-07-27] MEDS ORDERED: PARO5TAB PO (23:42)
[2022-07-28 01:02] LABS: BASO # 0.1 10^3/uL (0.0-0.2); BASO % 0.5 % (0.0-1.0); EOS # 0.2 10^3/uL (0.0-0.5); EOS % 2.1 % (0.0-3.0); HEMATOCRIT 47.1 % (36.0-47.0); HEMOGLOBIN 13.9 g/dl (12.0-15.5); LYMPH # 2.6 10^3/uL (1.5-5.0); LYMPH % 26.6 % (24.0-44.0); MEAN CORPUSCULAR HEMOGLOBIN 24.4 pg (27.0-33.0); MEAN CORPUSCULAR HGB CONC 29.5 g/dl (32.0-36.5); MEAN CORPUSCULAR VOLUME 82.6 fl (80.0-96.0); MONO # 0.4 10^3/uL (0.0-0.8); MONO % 4.1 % (2.0-8.0); NEUTROPHILS # 6.5 10^3/uL (1.5-8.5); NEUTROPHILS % 66.2 % (36.0-66.0); PLATELET COUNT, AUTOMATED 300 10^3/uL (150-450); WHITE BLOOD COUNT 9.7 10^3/uL (4.0-10.0)
[2022-07-28 01:04] LABS: ALBUMIN 3.2 GM/DL (3.2-5.2); ALT/SGPT 20 U/L (12-78); BILIRUBIN,DIRECT 0.1 MG/DL (0.0-0.2); BILIRUBIN,TOTAL 0.5 MG/DL (0.2-1.0); BLOOD UREA NITROGEN 11 MG/DL (7-18); CALCIUM LEVEL 8.5 MG/DL (8.5-10.1); CARBON DIOXIDE LEVEL 31 MEQ/L (21-32); CHLORIDE LEVEL 98 MEQ/L (98-107); CK-MB VALUE MASS < 1.0 NG/ML (<3.6); CPK CREATINE PHOSPHOKINASE 73 U/L (26-192); CREATININE FOR GFR 0.84 MG/DL (0.55-1.30); GLOMERULAR FILTRATION RATE > 60.0 (>58); GLUCOSE, FASTING 292 MG/DL (70-100); LIPASE 114 U/L (73-393); MB/CK RELATIVE INDEX 1.37 (< OR =4); POTASSIUM SERUM 4.6 MEQ/L (3.5-5.1); SODIUM LEVEL 133 MEQ/L (136-145); TOTAL PROTEIN 7.9 GM/DL (6.4-8.2)
[2022-07-28] MEDS ORDERED: ISOVUE-370 76% 100ML VIAL As Ordered ONE (04:43)
[2022-07-28 05:00] VITALS: BP 177/88
[2022-07-28] MEDS ORDERED: NAPROXEN 250 MG TAB PO ONE (06:35)
[2022-07-28] MEDS ORDERED: ASPI81TA26 PO (06:37)
[2022-07-28] MEDS ORDERED: LISI10TA22 PO (06:37)
[2022-07-28] MEDS ORDERED: PROAAER10 INH (06:37)
[2022-07-28] MEDS ORDERED: LEVO100T5 PO (06:37)
[2022-07-28] MEDS ORDERED: NAPR-837 PO (06:39)
[2022-07-28] MEDS ORDERED: HOME MED LIST COMPLETE! XX SCH (06:40)
== END 2022-07-28 07:02 | disposition home or self-care (01) ==
LOC: M ED 23:30
DX: R10.11 Right upper quadrant pain (principal); E11.9 Type 2 diabetes mellitus without complications; I10 Essential (primary) hypertension; K42.9 Umbilical hernia without obstruction or gangrene; Z79.4 Long term (current) use of insulin; Z88.6 Allergy status to analgesic agent
CPT/HCPCS: 74177; 80048; 80076; 81000; 81015; 82550; 82553; 83690; 85025; 93005; 93041; 99284; Q9967

== ENCOUNTER → 2022-09-09 | Outpatient (REF) | payer OTHER ==
[~2022-09-09] MED LIST changes: +INSU100I16 SC; +NAPR-837 PO; +PARO5TAB PO; +ROSU10TA6 PO
[2022-09-09 18:34] LABS: MAU/CREAT RATIO 380.2 MCG/MG (0.0-30.0)
== END ==
LOC: M LAB REF 16:01
PROVIDERS: ATTEND Family Medicine Addiction Medicine
DX: E11.9 Type 2 diabetes mellitus without complications (principal)

== ENCOUNTER → 2022-12-26 | Outpatient (REF) | payer OTHER ==
[2022-12-26 11:50] LABS: HEMOGLOBIN A1c 7.5 % (4.0-6.0)
[2022-12-26 12:18] LABS: ALKALINE PHOSPHATASE 114 U/L (46-116); ALT/SGPT 14 U/L (7.0-40); AST/SGOT < 8 U/L (<34); BILIRUBIN,TOTAL 0.4 MG/DL (0.3-1.2); BLOOD UREA NITROGEN 19 MG/DL (9-23); CALCIUM LEVEL 8.7 MG/DL (8.5-10.1); CARBON DIOXIDE LEVEL 32 MMOL/L (20-31); CHLORIDE LEVEL 100 MMOL/L (98-107); CHOLESTEROL LEVEL 194 MG/DL (<200); CHOLESTEROL RISK RATIO 3.25 (<5); GLOMERULAR FILTRATION RATE > 60.0 (>58); GLUCOSE, FASTING 118 MG/DL (60-100); HDL CHOLESTEROL 59.6 MG/DL (>40); LDL CHOLESTEROL 109.6 MG/DL (<100); NON-HDL-C 134 MG/DL; POTASSIUM SERUM 4.1 MMOL/L (3.5-5.1); SODIUM LEVEL 140 MMOL/L (136-145); THYROID STIMULATING HORMONE 9.868 uIU/ML (0.55-4.78); TRIGLYCERIDES LEVEL 124 MG/DL (<150)
== END ==
LOC: M LAB REF 11:23
PROVIDERS: ATTEND Family Medicine Addiction Medicine
DX: E11.9 Type 2 diabetes mellitus without complications (principal); E03.9 Hypothyroidism, unspecified

== ENCOUNTER → 2023-07-19 | Outpatient (REF) | payer OTHER ==
[~2023-07-19] MED LIST changes: +PRED10TA2 PO
== END ==
LOC: M SFHCWAGY 17:26
PROVIDERS: ATTEND Nurse Practitioner Family
DX: Z12.4 Encounter for screening for malignant neoplasm of cervix (principal); R87.610 Atypical squamous cells of undetermined significance on cytologic smear of cervix (ASC-US)

== ENCOUNTER 2023-07-22 20:34 | Emergency (ER) | payer OTHER ==
[~2023-07-22] VITALS: Ht 157.5 cm; Wt 147.8 kg
[~2023-07-22 20:34] MED LIST changes: -PRED10TA2 PO
[2023-07-23] MEDS ORDERED: PRED10TA2 PO (01:10)
[2023-07-23] MEDS ORDERED: predniSONE 20 MG TAB PO ONE (01:10)
[2023-07-23 01:21] VITALS: BP 140/97; TEMP 97.5; O2SAT 99
== END 2023-07-23 01:25 | disposition home or self-care (01) ==
LOC: M ED 20:34
DX: M70.22 Olecranon bursitis, left elbow (principal); W19.XXXA Unspecified fall, initial encounter; M54.50 Low back pain, unspecified; I10 Essential (primary) hypertension; G43.909 Migraine, unspecified, not intractable, without status migrainosus; J45.909 Unspecified asthma, uncomplicated; E03.9 Hypothyroidism, unspecified; Z88.6 Allergy status to analgesic agent; Z79.52 Long term (current) use of systemic steroids; Z79.811 Long term (current) use of aromatase inhibitors; Z79.899 Other long term (current) drug therapy
CPT/HCPCS: 73080; 73090; 99283; J7512

== ENCOUNTER → 2023-09-06 | Outpatient (REF) | payer OTHER ==
[~2023-09-06] MED LIST changes: +PRED10TA2 PO
[2023-09-06 14:18] LABS: ALBUMIN 3.2 G/DL (3.2-5.2); ALKALINE PHOSPHATASE 103 U/L (46-116); ALT/SGPT 9 U/L (7.0-40); AST/SGOT 15 U/L (<34); BILIRUBIN,TOTAL 0.5 MG/DL (0.3-1.2); BLOOD UREA NITROGEN 18 MG/DL (9-23); CARBON DIOXIDE LEVEL 33 MMOL/L (20-31); CHLORIDE LEVEL 99 MMOL/L (98-107); CHOLESTEROL LEVEL 155 MG/DL (<200); CHOLESTEROL RISK RATIO 2.69 (<5); CREATININE FOR GFR 0.81 MG/DL (0.55-1.30); GLOMERULAR FILTRATION RATE > 60.0 (>58); GLUCOSE, FASTING 77 MG/DL (60-100); HDL CHOLESTEROL 57.5 MG/DL (>40); LDL CHOLESTEROL 79.1 MG/DL (<100); NON-HDL-C 97.5 MG/DL; POTASSIUM SERUM 4.1 MMOL/L (3.5-5.1); SODIUM LEVEL 139 MMOL/L (136-145); THYROID STIMULATING HORMONE 5.762 uIU/ML (0.55-4.78); TOTAL PROTEIN 7.3 G/DL (5.7-8.2); TRIGLYCERIDES LEVEL 92 MG/DL (<150)
[2023-09-06 14:19] LABS: HEMOGLOBIN A1c 9.3 % (4.0-6.0)
== END ==
LOC: M LAB REF 12:33
PROVIDERS: ATTEND Family Medicine Addiction Medicine
DX: E11.9 Type 2 diabetes mellitus without complications (principal)

== ENCOUNTER 2023-09-11 11:43 | Emergency (ER) | payer OTHER ==
[~2023-09-11] VITALS: Ht 157.5 cm; Wt 141.2 kg
[2023-09-11] MEDS ORDERED: ONDANSETRON 4MG 2ML VIAL IV ONE (12:20)
[2023-09-11] MEDS ORDERED: NS 1,000 ML IV ONE (12:20)
[2023-09-11] MEDS ORDERED: ASPIRIN 325 MG TAB PO ONE (12:20)
[2023-09-11 12:40] LABS: BASO % 0.4 % (0.0-1.0); EOS # 0.1 10^3/uL (0.0-0.5); EOS % 1.2 % (0.0-3.0); HEMATOCRIT 46.3 % (36.0-47.0); LYMPH # 1.9 10^3/uL (1.5-5.0); LYMPH % 16.9 % (24.0-44.0); MEAN CORPUSCULAR HEMOGLOBIN 26.1 pg (27.0-33.0); MEAN CORPUSCULAR HGB CONC 30.2 g/dl (32.0-36.5); MEAN CORPUSCULAR VOLUME 86.2 fl (80.0-96.0); MONO # 0.5 10^3/uL (0.0-0.8); MONO % 4.1 % (2.0-8.0); NEUTROPHILS # 8.7 10^3/uL (1.5-8.5); NEUTROPHILS % 77.1 % (36.0-66.0); PLATELET COUNT, AUTOMATED 325 10^3/uL (150-450); RED BLOOD COUNT 5.37 10^6/uL (4.00-5.40); WHITE BLOOD COUNT 11.3 10^3/uL (4.0-10.0)
[2023-09-11 13:12] LABS: LIPASE 22 U/L (12-53)
[2023-09-11 13:14] LABS: ALBUMIN 3.3 G/DL (3.2-5.2); ALKALINE PHOSPHATASE 113 U/L (46-116); ALT/SGPT 15 U/L (7.0-40); AST/SGOT 55 U/L (<34); BILIRUBIN,DIRECT 0.2 MG/DL (<0.4); BILIRUBIN,TOTAL 0.6 MG/DL (0.3-1.2); BLOOD UREA NITROGEN 11 MG/DL (9-23); CALCIUM LEVEL 8.7 MG/DL (8.5-10.1); CARBON DIOXIDE LEVEL 28 MMOL/L (20-31); CHLORIDE LEVEL 99 MMOL/L (98-107); CREATININE FOR GFR 0.67 MG/DL (0.55-1.30); GLOMERULAR FILTRATION RATE > 60.0 (>58); GLUCOSE, FASTING 163 MG/DL (60-100); POTASSIUM SERUM 4.2 MMOL/L (3.5-5.1); SODIUM LEVEL 136 MMOL/L (136-145); TOTAL PROTEIN 7.4 G/DL (5.7-8.2)
[2023-09-11 13:16] LABS: THYROID STIMULATING HORMONE 3.025 uIU/ML (0.55-4.78)
[2023-09-11 13:32] LABS: CPK CREATINE PHOSPHOKINASE 359 U/L (34-145); MB/CK RELATIVE INDEX 3.89 (< OR =4)
[2023-09-11] MEDS ORDERED: NITROGLYCERIN 0.4MG SUBL TABLET SL PRN (13:35)
[2023-09-11 14:02] LABS: CK-MB VALUE MASS 17.4 NG/ML (<3.6)
[2023-09-11 14:08] LABS: MB/CK RELATIVE INDEX 4.62 (< OR =4)
[2023-09-11 15:00] VITALS: BP 164/90; TEMP 98.8; O2SAT 96
== END 2023-09-11 15:00 | disposition short-term general hospital (02) ==
LOC: M ED 11:43
DX: I21.4 Non-ST elevation (NSTEMI) myocardial infarction (principal); E11.9 Type 2 diabetes mellitus without complications; I10 Essential (primary) hypertension; J45.909 Unspecified asthma, uncomplicated; E03.9 Hypothyroidism, unspecified; Z88.6 Allergy status to analgesic agent; Z79.52 Long term (current) use of systemic steroids; Z79.82 Long term (current) use of aspirin; Z79.811 Long term (current) use of aromatase inhibitors; Z79.899 Other long term (current) drug therapy
CPT/HCPCS: 36415; 71045; 80048; 80076; 82550; 82553; 83690; 84443; 85025; 87486; 87581; 87633; 87798; 93005; 93041; 94760; 96361; 96374; 99285; J2405

== ENCOUNTER 2023-11-05 01:52 | Inpatient (IN) | payer OTHER ==
[~2023-11-05] VITALS: Ht 157.5 cm; Wt 145.4 kg
[2023-11-05] MEDS ORDERED: BRIL90TA PO (02:20)
[2023-11-05] MEDS ORDERED: DEPO150I12 IM (02:20)
[2023-11-05] MEDS ORDERED: CARV3.12 PO (02:20)
[2023-11-05 04:25] LABS: HEMATOCRIT 44.9 % (36.0-47.0); HEMOGLOBIN 14.1 g/dl (12.0-15.5); MEAN CORPUSCULAR HEMOGLOBIN 27.8 pg (27.0-33.0); MEAN CORPUSCULAR HGB CONC 31.4 g/dl (32.0-36.5); MEAN CORPUSCULAR VOLUME 88.4 fl (80.0-96.0); PLATELET COUNT, AUTOMATED 267 10^3/uL (150-450); RED BLOOD COUNT 5.08 10^6/uL (4.00-5.40); WHITE BLOOD COUNT 9.2 10^3/uL (4.0-10.0)
[2023-11-05 04:46] LABS: AMPHETAMINES LEVEL URINE NEGATIVE (NEGATIVE); BARBITURATES URINE NEGATIVE (NEGATIVE); BENZODIAZEPINES URINE NEGATIVE (NEGATIVE); COCAINE METABOLITE URINE NEGATIVE (NEGATIVE)
[2023-11-05 04:47] LABS: CANNABINOIDS URINE NEGATIVE (NEGATIVE); METHADONE URINE NEGATIVE (NEGATIVE); OPIATES URINE NEGATIVE (NEGATIVE); PHENCYCLIDINE URINE NEGATIVE (NEGATIVE)
[2023-11-05 04:49] LABS: ETHYL ALCOHOL (ETHANOL) < 0.003 % (0.000-0.010); HCG, SERUM QUALITATIVE NEGATIVE (NEGATIVE)
[2023-11-05 04:50] LABS: ALBUMIN 3.6 G/DL (3.2-5.2); ALKALINE PHOSPHATASE 110 U/L (46-116); ALT/SGPT 15 U/L (7.0-40); AST/SGOT 11 U/L (<34); BILIRUBIN,DIRECT 0.2 MG/DL (<0.4); BILIRUBIN,TOTAL 0.5 MG/DL (0.3-1.2); BLOOD UREA NITROGEN 20 MG/DL (9-23); CALCIUM LEVEL 9.7 MG/DL (8.5-10.1); CARBON DIOXIDE LEVEL 27 MMOL/L (20-31); CHLORIDE LEVEL 103 MMOL/L (98-107); CREATININE FOR GFR 0.82 MG/DL (0.55-1.30); GLOMERULAR FILTRATION RATE > 60.0 (>58); GLUCOSE, FASTING 248 MG/DL (60-100); POTASSIUM SERUM 3.8 MMOL/L (3.5-5.1); SALICYLATE LEVEL < 3.0 MG/DL (<30); SODIUM LEVEL 141 MMOL/L (136-145); TOTAL PROTEIN 7.5 G/DL (5.7-8.2)
[2023-11-05 04:52] LABS: THYROID STIMULATING HORMONE 0.653 uIU/ML (0.55-4.78)
[2023-11-05] MEDS ORDERED: MED REC IN PROGRESS XX SCH (08:40)
[2023-11-05] MEDS ORDERED: MED REC CURRENTLY UNOBTAINABLE XX SCH (09:10)
[2023-11-05] MEDS ORDERED: MAALOX 30 ML SUSP *UDC PO PRN (10:50)
[2023-11-05] MEDS ORDERED: MOM 30ML SUSPENSION UDC PO PRN (10:50)
[2023-11-05] MEDS ORDERED: diphenhydrAMINE 25MG CAP PO PRN (10:50)
[2023-11-05] MEDS ORDERED: ACETAMINOPHEN TAB 650MG DOSE (2X325MG) PO PRN (10:50)
[2023-11-05] MEDS ORDERED: traZODone 50 MG TAB PO PRN (10:50)
[2023-11-05] MEDS ORDERED: IBUPROFEN 400MG TAB PO PRN (10:50)
[2023-11-05] MEDS ORDERED: LISI20TA33 PO (12:46)
[2023-11-05] MEDS ORDERED: PARO20TA3 PO (12:46)
[2023-11-05] MEDS ORDERED: HYDR-3490 PO (12:46)
[2023-11-05] MEDS ORDERED: ROSU20TA61 PO (12:46)
[2023-11-05] MEDS ORDERED: VENTAER INH (12:46)
[2023-11-05] MEDS ORDERED: NYST-13 TOP (12:46)
[2023-11-05] MEDS ORDERED: HOME MED LIST COMPLETE! XX SCH (12:55)
[2023-11-05] MEDS ORDERED: GLUCAGON INJ 1MG VIAL SC PRN (18:10)
[2023-11-05] MEDS ORDERED: DEXTROSE 50% 50ML SYRINGE IV PRN (18:10)
[2023-11-05] MEDS ORDERED: NYSTATIN CREAM 15GM TOP PRN (18:10)
[2023-11-05] MEDS ORDERED: GLUCOSE 4GM CHEW TABLET PO PRN (18:10)
[2023-11-05] MEDS ORDERED: ALBUTEROL 90 MCG/ACT 8GM HFA INHALER INH PRN (18:10)
[2023-11-05] MEDS: INSULIN LISPRO (NovoLOG) PER UNIT SC SCH (21:12)
[2023-11-05] MEDS: TICAGRELOR 90 MG TABLET (BRILINTA) PO SCH (21:12)
[2023-11-05] MEDS: ROSUVASTATIN 10 MG TAB (CRESTOR) PO SCH (21:12)
[2023-11-05] MEDS: CARVedilol 3.125 MG TAB PO SCH (21:16)
[2023-11-06] MEDS: LEVOTHYROXINE 100MCG TABLET (0.1MG) PO SCH (05:42)
[2023-11-06 06:36] VITALS: BP 130/63; TEMP 97.3; O2SAT 98
[2023-11-06] MEDS: INSULIN LISPRO (NovoLOG) PER UNIT SC SCH ×4 (06:36→22:44)
[2023-11-06] MEDS ORDERED: INSULIN LISPRO (NovoLOG) PER UNIT SC SCH ×3 (07:30→17:30)
[2023-11-06] MEDS ORDERED: LEVEMIR (INSULIN DETEMIR) 1 UNITS/0.01ML SC SCH ×2 (09:00→21:00)
[2023-11-06] MEDS: TICAGRELOR 90 MG TABLET (BRILINTA) PO SCH ×2 (09:49→22:43)
[2023-11-06] MEDS: CARVedilol 3.125 MG TAB PO SCH ×2 (09:49→22:43)
[2023-11-06] MEDS: ASPIRIN 81MG ENTERIC TABLET PO SCH (09:49)
[2023-11-06] MEDS: PARoxetine 20MG TABLET PO SCH (12:02)
[2023-11-06 18:28] VITALS: BP 134/71; TEMP 97.4; O2SAT 98
[2023-11-06] MEDS: ROSUVASTATIN 10 MG TAB (CRESTOR) PO SCH (22:43)
[2023-11-07] MEDS: LEVOTHYROXINE 100MCG TABLET (0.1MG) PO SCH (05:35)
[2023-11-07 05:54] VITALS: BP 132/73; TEMP 98.4; O2SAT 95
[2023-11-07] MEDS: INSULIN LISPRO (NovoLOG) PER UNIT SC SCH ×2 (06:32→12:00)
[2023-11-07] MEDS: ASPIRIN 81MG ENTERIC TABLET PO SCH (09:22)
[2023-11-07] MEDS: CARVedilol 3.125 MG TAB PO SCH (09:22)
[2023-11-07] MEDS: PARoxetine 20MG TABLET PO SCH (09:22)
[2023-11-07] MEDS: TICAGRELOR 90 MG TABLET (BRILINTA) PO SCH (09:22)
[2023-11-07 09:23] VITALS: BP 132/73
[2023-11-07] MEDS ORDERED: PARO20TA3 PO (11:18)
== END 2023-11-07 14:54 | disposition home or self-care (01) | DRG 755 ==
LOC: M ED 01:52 → M ED INP 11:37 → M PSY 14:20
PROVIDERS: ADMIT Student in an Organized Health Care Education/Training Program; ATTEND Student in an Organized Health Care Education/Training Program
DX: F43.23 Adjustment disorder with mixed anxiety and depressed mood (principal); F32.A Depression, unspecified; E11.9 Type 2 diabetes mellitus without complications; R45.851 Suicidal ideations; F41.9 Anxiety disorder, unspecified; E03.9 Hypothyroidism, unspecified; I25.2 Old myocardial infarction; Z79.4 Long term (current) use of insulin; Z79.890 Hormone replacement therapy; Z79.899 Other long term (current) drug therapy; Z88.6 Allergy status to analgesic agent; Z20.822 Contact with and (suspected) exposure to COVID-19; Z63.0 Problems in relationship with spouse or partner; Z63.4 Disappearance and death of family member

== ENCOUNTER → 2024-01-04 | Outpatient (REF) | payer OTHER, MEDICAID ==
[~2024-01-04] MED LIST changes: +BRIL90TA PO; +CARV3.12 PO; +DEPO150I12 IM; +HYDR-3490 PO; +NYST-13 TOP; +PARO20TA3 PO; +ROSU20TA61 PO
[2024-01-04 15:04] LABS: HEMOGLOBIN A1c 9.1 % (4.0-6.0)
[2024-01-04 15:16] LABS: ALBUMIN 3.2 G/DL (3.2-5.2); ALKALINE PHOSPHATASE 102 U/L (46-116); ALT/SGPT 12 U/L (7.0-40); AST/SGOT 8 U/L (<34); BILIRUBIN,TOTAL 0.5 MG/DL (0.3-1.2); BLOOD UREA NITROGEN 25 MG/DL (9-23); CALCIUM LEVEL 9.1 MG/DL (8.5-10.1); CARBON DIOXIDE LEVEL 31 MMOL/L (20-31); CHLORIDE LEVEL 100 MMOL/L (98-107); CHOLESTEROL LEVEL 128 MG/DL (<200); CHOLESTEROL RISK RATIO 2.72 (<5); CREATININE FOR GFR 0.83 MG/DL (0.55-1.30); GLOMERULAR FILTRATION RATE > 60.0 (>58); GLUCOSE, FASTING 164 MG/DL (60-100); LDL CHOLESTEROL 58.4 MG/DL (<100); POTASSIUM SERUM 3.9 MMOL/L (3.5-5.1); SODIUM LEVEL 136 MMOL/L (136-145); TOTAL PROTEIN 7.1 G/DL (5.7-8.2); TRIGLYCERIDES LEVEL 113 MG/DL (<150)
[2024-01-04 15:17] LABS: THYROID STIMULATING HORMONE 0.459 uIU/ML (0.55-4.78)
[2024-01-05 18:01] LABS: CREATININE, URINE 158.7 MG/DL
== END ==
LOC: M LAB REF 12:49
PROVIDERS: ATTEND Family Medicine Addiction Medicine
DX: E11.9 Type 2 diabetes mellitus without complications (principal)

== ENCOUNTER 2024-04-27 14:55 | Emergency (ER) | payer OTHER ==
[~2024-04-27] VITALS: Ht 157.5 cm; Wt 146.4 kg
[~2024-04-27 14:55] MED LIST changes: -ROSU10TA6 PO; +ROSU10TA61 PO
[2024-04-27 15:54] LABS: BASO % 0.4 % (0.0-1.0); EOS # 0.2 10^3/uL (0.0-0.5); EOS % 1.8 % (0.0-3.0); HEMATOCRIT 43.3 % (36.0-47.0); HEMOGLOBIN 13.9 g/dl (12.0-15.5); LYMPH # 1.9 10^3/uL (1.5-5.0); LYMPH % 20.6 % (24.0-44.0); MEAN CORPUSCULAR HEMOGLOBIN 28.3 pg (27.0-33.0); MEAN CORPUSCULAR HGB CONC 32.1 g/dl (32.0-36.5); MONO # 0.5 10^3/uL (0.0-0.8); MONO % 4.9 % (2.0-8.0); NEUTROPHILS # 6.8 10^3/uL (1.5-8.5); NEUTROPHILS % 72.1 % (36.0-66.0); PLATELET COUNT, AUTOMATED 311 10^3/uL (150-450); RED BLOOD COUNT 4.92 10^6/uL (4.00-5.40); WHITE BLOOD COUNT 9.4 10^3/uL (4.0-10.0)
[2024-04-27 16:06] LABS: VENOUS BASE EXCESS 5.5 (-2.0-2.0); VENOUS O2 SATURATION 39.6 % (60.0-80.0); VENOUS PARTIAL PRESSURE CO2 60.2 mmHg (38.0-50.0); VENOUS PARTIAL PRESSURE O2 21.8 mmHg (30.0-50.0); VENOUS PH 7.357 UNITS (7.330-7.430); VENOUS STANDARD HCO3 27.9 MMOL/L; VENOUS TOTAL CO2 34.9 MMOL/L (24.0-28.0)
[2024-04-27 17:24] LABS: CK-MB VALUE MASS < 1.0 NG/ML (<3.6); LIPASE 32 U/L (12-53)
[2024-04-27 17:26] LABS: BLOOD UREA NITROGEN 18 MG/DL (9-23); CALCIUM LEVEL 8.8 MG/DL (8.5-10.1); CARBON DIOXIDE LEVEL 30 MMOL/L (20-31); CHLORIDE LEVEL 103 MMOL/L (98-107); CREATININE FOR GFR 0.74 MG/DL (0.55-1.30); GLOMERULAR FILTRATION RATE > 60.0 (>58); GLUCOSE, FASTING 184 MG/DL (60-100); MAGNESIUM LEVEL 1.8 MG/DL (1.8-2.4); SODIUM LEVEL 140 MMOL/L (136-145)
[2024-04-27 17:27] LABS: CPK CREATINE PHOSPHOKINASE 72 U/L (34-145); MB/CK RELATIVE INDEX 1.38 (< OR =4)
[2024-04-27 17:28] LABS: FREE T4 0.92 NG/DL (0.89-1.76); THYROID STIMULATING HORMONE 3.151 uIU/ML (0.55-4.78)
[2024-04-27 17:31] LABS: CK-MB VALUE MASS < 1.0 NG/ML (<3.6)
[2024-04-27 17:56] LABS: CPK CREATINE PHOSPHOKINASE 66 U/L (34-145); MB/CK RELATIVE INDEX 1.51 (< OR =4)
[2024-04-27 17:57] VITALS: BP 163/85; TEMP 97.2; O2SAT 96
== END 2024-04-27 17:59 | disposition home or self-care (01) ==
LOC: M ED 14:55
DX: R55 Syncope and collapse (principal); E11.9 Type 2 diabetes mellitus without complications; I10 Essential (primary) hypertension; E03.9 Hypothyroidism, unspecified; E66.9 Obesity, unspecified; Z79.82 Long term (current) use of aspirin; Z79.4 Long term (current) use of insulin; Z79.899 Other long term (current) drug therapy; Z88.6 Allergy status to analgesic agent

== ENCOUNTER → 2024-09-10 | Outpatient (REF) | payer OTHER ==
[~2024-09-10] MED LIST changes: +GABA-1172 PO; -GABA-282 PO; +GLIP10TA15 PO; -GLIP10TA6 PO; -ROSU20TA61 PO; +ROSU20TA86 PO
== END ==
LOC: M LAB REF 16:54
PROVIDERS: ATTEND Physician Assistant Medical
DX: R05.9 Cough, unspecified (principal)

== ENCOUNTER 2025-01-01 22:48 | Emergency (ER) | payer OTHER ==
[~2025-01-01] VITALS: Ht 157.5 cm; Wt 140.2 kg
[~2025-01-01 22:48] MED LIST changes: -CYCL5TAB PO; +CYCL5TAB4 PO; -LIDO1CRE2 EX; +LIDO4CRE12 EX; +NYST1POW3 TOP; -NYST1POW9 TOP
[2025-01-02] MEDS ORDERED: ISOVUE-370 76% 100ML VIAL As Ordered ONE (04:23)
[2025-01-02 04:33] LABS: BASO % 0.4 % (0.0-1.0); EOS # 0.2 10^3/uL (0.0-0.5); EOS % 1.6 % (0.0-3.0); HEMATOCRIT 45.9 % (36.0-47.0); HEMOGLOBIN 14.2 g/dl (12.0-15.5); LYMPH # 2.4 10^3/uL (1.5-5.0); LYMPH % 24.8 % (24.0-44.0); MEAN CORPUSCULAR HEMOGLOBIN 26.6 pg (27.0-33.0); MEAN CORPUSCULAR HGB CONC 30.9 g/dl (32.0-36.5); MONO # 0.6 10^3/uL (0.0-0.8); MONO % 6.2 % (2.0-8.0); NEUTROPHILS # 6.6 10^3/uL (1.5-8.5); NEUTROPHILS % 66.7 % (36.0-66.0); PLATELET COUNT, AUTOMATED 297 10^3/uL (150-450); RED BLOOD COUNT 5.34 10^6/uL (4.00-5.40); WHITE BLOOD COUNT 9.8 10^3/uL (4.0-10.0)
[2025-01-02 04:53] LABS: BLOOD UREA NITROGEN 18 MG/DL (9-23); CALCIUM LEVEL 8.8 MG/DL (8.5-10.1); CARBON DIOXIDE LEVEL 29 MMOL/L (20-31); CHLORIDE LEVEL 102 MMOL/L (98-107); CREATININE FOR GFR 0.77 MG/DL (0.55-1.30); GLOMERULAR FILTRATION RATE > 60.0 (>58); GLUCOSE, FASTING 147 MG/DL (60-100); POTASSIUM SERUM 4.5 MMOL/L (3.5-5.1); SODIUM LEVEL 140 MMOL/L (136-145)
[2025-01-02] MEDS ORDERED: MAGICMW SSP (06:58)
[2025-01-02 07:32] LABS: MONO SCRN NEGATIVE (NEGATIVE)
[2025-01-02 07:51] VITALS: BP 123/71; TEMP 97.2; O2SAT 95
== END 2025-01-02 07:58 | disposition home or self-care (01) ==
LOC: M ED 22:48
DX: J02.9 Acute pharyngitis, unspecified (principal); K08.9 Disorder of teeth and supporting structures, unspecified; E11.40 Type 2 diabetes mellitus with diabetic neuropathy, unspecified; E03.9 Hypothyroidism, unspecified; M54.9 Dorsalgia, unspecified; G43.909 Migraine, unspecified, not intractable, without status migrainosus; Z87.440 Personal history of urinary (tract) infections; Z95.5 Presence of coronary angioplasty implant and graft; Z85.41 Personal history of malignant neoplasm of cervix uteri; Z79.4 Long term (current) use of insulin; Z79.82 Long term (current) use of aspirin; Z79.899 Other long term (current) drug therapy; Z88.6 Allergy status to analgesic agent
CPT/HCPCS: 70491; 80047; 80048; 85025; 86308; 87880; 99285; Q9967

== ENCOUNTER → 2025-03-19 | Outpatient (REF) | payer OTHER ==
[~2025-03-19] MED LIST changes: -NYST-13 TOP; +NYST0.1C TOP
[2025-03-19 17:58] LABS: HEMATOCRIT 45.2 % (36.0-47.0); MEAN CORPUSCULAR HEMOGLOBIN 26.8 pg (27.0-33.0); MEAN CORPUSCULAR VOLUME 86.6 fl (80.0-96.0); PLATELET COUNT, AUTOMATED 301 10^3/uL (150-450); RED BLOOD COUNT 5.22 10^6/uL (4.00-5.40); WHITE BLOOD COUNT 9.7 10^3/uL (4.0-10.0)
[2025-03-19 18:21] LABS: THYROID STIMULATING HORMONE 0.522 uIU/ML (0.55-4.78)
[2025-03-19 18:22] LABS: ALBUMIN 3.3 G/DL (3.2-5.2); ALKALINE PHOSPHATASE 126 U/L (35-104); ALT/SGPT 16 U/L (7.0-40); AST/SGOT 17 U/L (<34); BILIRUBIN,TOTAL 0.5 MG/DL (0.3-1.2); BLOOD UREA NITROGEN 16 MG/DL (9-23); CALCIUM LEVEL 9.2 MG/DL (8.5-10.1); CARBON DIOXIDE LEVEL 33 MMOL/L (20-31); CHLORIDE LEVEL 99 MMOL/L (98-107); CHOLESTEROL LEVEL 131 MG/DL (<200); CHOLESTEROL RISK RATIO 2.44 (<5); CREATININE FOR GFR 0.77 MG/DL (0.55-1.30); GLOMERULAR FILTRATION RATE > 90.0 (>58); GLUCOSE, FASTING 162 MG/DL (60-100); HDL CHOLESTEROL 53.5 MG/DL (>40); LDL CHOLESTEROL 50.3 MG/DL (<100); NON-HDL-C 77.5 MG/DL; POTASSIUM SERUM 4.9 MMOL/L (3.5-5.1); SODIUM LEVEL 142 MMOL/L (136-145); TOTAL PROTEIN 7.5 G/DL (5.7-8.2); TRIGLYCERIDES LEVEL 136 MG/DL (<150)
[2025-03-19 19:01] LABS: HEMOGLOBIN A1c 7.7 % (4.0-6.0)
== END ==
LOC: M LAB REF 17:18
PROVIDERS: ATTEND Family Medicine Addiction Medicine
DX: E11.9 Type 2 diabetes mellitus without complications (principal)